=== PATIENT | female | born 1950 | race Caucasian/White ===

== ENCOUNTER → 2017-12-16 11:22 | Outpatient (REF) | payer MEDICARE, SELFPAY ==
[2017-12-16 13:50] LABS: Amphetamine/Metha Screen,Urine Negative ng/mL (<1000); Barbiturates Screen,Urine Negative ng/mL (<200); Benzodiazepines Screen,Urine Negative ng/mL (200); Cannabinoid Screen,Urine Negative ng/mL (<50); Cocaine Screen,Urine Negative ng/g (<300); Methadone Screen,Urine Negative ng/mL (<300); Opiate Screen,Urine Negative ng/mL (<300); Phencyclidine Screen,Urine Negative ng/mL (<25)
[2017-12-16 14:02] LABS: Basophils # 0.1 K/mm3 (0-0.2); Basophils % 0.6 % (0.1-2.0); Eosinophils # 0.1 K/mm3 (0.0-0.4); Eosinophils % 1.3 % (0.1-12.0); Hematocrit 44.4 % (37.0-47.0); Hemoglobin 14.7 g/dL (12.2-16.2); Lymphocytes # 1.6 K/mm3 (0.7-4.5); Lymphocytes % 20.6 K/mm3 (10-50); Mean Corpuscular HGB Conc 33.1 g/dL (31.8-35.4); Mean Corpuscular Volume 90.8 fl (81-99); Monocytes # 0.4 K/mm3 (0.1-1.0); Neutrophils # 5.5 K/mm3 (1.8-7.8); Neutrophils % 72.5 % (37.0-80.0); Platelet Count 307 K/mm3 (142-424); Red Blood Count 4.89 M/mm3 (4.20-5.40); Red Cell Distribution Width 12.2 % (11.5-17.5); White Blood Count 7.6 K/mm3 (4.8-10.8)
[2017-12-16 14:04] LABS: Alanine Aminotransferase 29 U/L (12-78); Albumin Level 4.5 gm/dL (3.4-5.0); Albumin/Globulin Ratio 1.2 (1.1-1.8); Alkaline Phosphatase 77 U/L (46-116); Anion Gap 17.6 mEq/L (5-15); Aspartate Amino Transferase 30 U/L (15-37); Bilirubin,Total 0.4 mg/dL (0.2-1.0); Blood Urea Nitrogen 4 mg/dL (7-18); Calcium 9.7 mg/dL (8.5-10.1); Carbon Dioxide 26 mmol/L (21.0-32.0); Chloride 95 mmol/L (98-107); Chol/HDL Ratio 1.6 (1-3.5); Cholesterol 175 mg/dL (140-200); Creatinine,Serum 0.58 mg/dL (0.55-1.02); Estimated Glomerular Filt Rate 104 ml/min (>60); GFR (African American) 126 ML/MIN (>60); Globulin 3.7 gm/dl (1.3-3.2); Glucose 103 mg/dL (74-106); HDL Cholesterol 109 mg/dL (29-89); LDL Cholesterol 51 mg/dL (0-130); Potassium 4.6 mmoL/L (3.5-5.1); Sodium 134 mmol/L (136-145); T4 (Thyroxine) 7.5 ug/dl (4.7-13.3); Thyroid Stimulating Hormone 2.31 uIU/ml (0.358-3.740); Total Protein,Serum 8.2 gm/dL (6.4-8.2); Triglycerides 76 mg/dL (30-200); VLDL Cholesterol 15 mg/dL (0-40)
== END ==
LOC: LAB 11:22
PROVIDERS: Visit Provider Physician Assistant
DX: I10 Essential (primary) hypertension (principal); Z79.899 Other long term (current) drug therapy
CPT/HCPCS: 80053; 80061; 80305; 84436; 84443; 85025

== ENCOUNTER → 2018-04-07 10:09 | Outpatient (CLI) | payer MEDICARE, SELFPAY ==
[2018-04-07 13:57] LABS: Free T4 (Free Thyroxine) 0.98 ng/dl (0.76-1.46); Thyroid Stimulating Hormone 2.44 uIU/ml (0.358-3.740)
== END ==
PROVIDERS: Visit Provider Physician Assistant
DX: E78.5 Hyperlipidemia, unspecified (principal); F41.9 Anxiety disorder, unspecified
CPT/HCPCS: 84439; 84443

== ENCOUNTER → 2018-10-07 14:37 | Outpatient (CLI) | payer MEDICARE, SELFPAY ==
[2018-10-07 15:20] LABS: Amphetamine/Metha Screen,Urine Negative ng/mL (<1000); Barbiturates Screen,Urine Negative ng/mL (<200); Benzodiazepines Screen,Urine Negative ng/mL (<200); Cannabinoid Screen,Urine Negative ng/mL (<50); Cocaine Screen,Urine Negative ng/mL (<300); Methadone Screen,Urine Negative ng/mL (<300); Opiate Screen,Urine Negative ng/mL (<300); Phencyclidine Screen,Urine Negative ng/mL (<25)
== END ==
PROVIDERS: Visit Provider Physician Assistant
DX: Z79.899 Other long term (current) drug therapy (principal)
CPT/HCPCS: 80305

== ENCOUNTER → 2018-10-23 13:24 | Outpatient (CLI) | payer MEDICARE, SELFPAY ==
[2018-10-23 15:48] LABS: Amphetamine/Metha Screen,Urine Negative ng/mL (<1000); Barbiturates Screen,Urine Negative ng/mL (<200); Benzodiazepines Screen,Urine Negative ng/mL (<200); Cannabinoid Screen,Urine Negative ng/mL (<50); Cocaine Screen,Urine Negative ng/mL (<300); Methadone Screen,Urine Negative ng/mL (<300); Opiate Screen,Urine Negative ng/mL (<300); Phencyclidine Screen,Urine Negative ng/mL (<25)
== END ==
PROVIDERS: Visit Provider Physician Assistant
DX: Z79.899 Other long term (current) drug therapy (principal)
CPT/HCPCS: 80305

== ENCOUNTER → 2019-01-15 14:00 | Outpatient (CLI) | payer MEDICARE, SELFPAY ==
[2019-01-15 14:37] LABS: Basophils # 0.1 K/mm3 (0-0.2); Basophils % 0.6 % (0.1-2.0); Eosinophils # 0.1 K/mm3 (0.0-0.4); Eosinophils % 1.3 % (0.1-12.0); Hematocrit 44.2 % (37.0-47.0); Hemoglobin 14.6 g/dL (12.2-16.2); Lymphocytes # 1.3 K/mm3 (0.7-4.5); Lymphocytes % 13.3 % (10-50); Mean Corpuscular Hemoglobin 29.1 pg (27.0-31.2); Mean Corpuscular Volume 88.3 fl (81-99); Mean Platelet Volume 7.5 fl (7.4-10.4); Monocytes # 0.6 K/mm3 (0.1-1.0); Monocytes % 5.9 % (1.7-9.3); Neutrophils # 7.9 K/mm3 (1.8-7.8); Neutrophils % 78.9 % (37.0-80.0); Platelet Count 332 K/mm3 (142-424); Red Cell Distribution Width 12.5 % (11.5-17.5); White Blood Count 10.1 K/mm3 (4.8-10.8)
[2019-01-15 16:55] LABS: Alanine Aminotransferase 43 U/L (12-78); Albumin Level 4.4 gm/dL (3.4-5.0); Albumin/Globulin Ratio 1.2 (1.1-1.8); Alkaline Phosphatase 95 U/L (46-116); Anion Gap 17.5 mEq/L (5-15); Aspartate Amino Transferase 30 U/L (15-37); Bilirubin,Total 0.6 mg/dL (0.2-1.0); Blood Urea Nitrogen 4 mg/dL (7-18); Calcium 9.7 mg/dL (8.5-10.1); Carbon Dioxide 26 mmol/L (21.0-32.0); Chloride 94 mmol/L (98-107); Chol/HDL Ratio 1.6 (1-3.5); Cholesterol 164 mg/dL (140-200); Creatinine,Serum 0.63 mg/dL (0.55-1.02); Estimated Glomerular Filt Rate 94 ml/min (>60); GFR (African American) 114 ML/MIN (>60); Globulin 3.7 gm/dl (1.3-3.2); Glucose 101 mg/dL (74-106); HDL Cholesterol 104 mg/dL (29-89); LDL Cholesterol 44 mg/dL (0-130); Potassium 4.5 mmoL/L (3.5-5.1); Sodium 133 mmol/L (136-145); T4 (Thyroxine) 5.3 ug/dl (4.7-13.3); Thyroid Stimulating Hormone 1.77 uIU/ml (0.358-3.740); Total Protein,Serum 8.1 gm/dL (6.4-8.2); Triglycerides 78 mg/dL (30-200); VLDL Cholesterol 16 mg/dL (0-40)
[2019-01-15 18:12] LABS: Amphetamine/Metha Screen,Urine Negative ng/mL (<1000); Barbiturates Screen,Urine Negative ng/mL (<200); Benzodiazepines Screen,Urine Negative ng/mL (<200); Cannabinoid Screen,Urine Negative ng/mL (<50); Cocaine Screen,Urine Negative ng/mL (<300); Methadone Screen,Urine Negative ng/mL (<300); Opiate Screen,Urine Negative ng/mL (<300); Phencyclidine Screen,Urine Negative ng/mL (<25)
[2019-01-26 07:28] LABS: Alprazolam Negative (Cutoff=100); Benzodiazepines Positive ng/mL (Cutoff=100); Clonazepam Negative (Cutoff=100); Flurazepam Negative (Cutoff=100); Lorazepam Positive (.); Midazolam Negative (Cutoff=100); Temazepam Negative (Cutoff=100); Triazolam Negative (Cutoff=100)
== END ==
LOC: LAB.DROPOF 14:03
PROVIDERS: Visit Provider Physician Assistant
DX: Z79.899 Other long term (current) drug therapy (principal); I10 Essential (primary) hypertension; E78.5 Hyperlipidemia, unspecified
CPT/HCPCS: 80053; 80061; 80305; 80346; 84436; 84443; 85025

== ENCOUNTER → 2019-04-20 13:59 | Outpatient (CLI) | payer MEDICARE, SELFPAY ==
[2019-04-20 15:04] LABS: Amphetamine/Metha Screen,Urine Negative ng/mL (<1000); Barbiturates Screen,Urine Negative ng/mL (<200); Benzodiazepines Screen,Urine Positive ng/mL (<200); Cannabinoid Screen,Urine Negative ng/mL (<50); Cocaine Screen,Urine Negative ng/mL (<300); Methadone Screen,Urine Negative ng/mL (<300); Opiate Screen,Urine Negative ng/mL (<300); Phencyclidine Screen,Urine Negative ng/mL (<25)
== END ==
PROVIDERS: Visit Provider Physician Assistant
DX: Z79.899 Other long term (current) drug therapy (principal)
CPT/HCPCS: 80305

== ENCOUNTER → 2019-10-19 13:43 | Outpatient (CLI) | payer MEDICARE, SELFPAY ==
[2019-10-19 21:17] LABS: Amphetamine/Metha Screen,Urine Negative ng/ml (<1000); Barbiturates Screen,Urine Negative ng/ml (<200)
[2019-10-19 21:18] LABS: Benzodiazepines Screen,Urine Negative ng/ml (<200)
[2019-10-19 21:19] LABS: Cannabinoid Screen,Urine Negative ng/ml (<50); Cocaine Screen,Urine Negative ng/ml (<300)
[2019-10-19 21:20] LABS: Methadone Screen,Urine Negative ng/ml (<300)
[2019-10-19 21:21] LABS: Opiate Screen,Urine Negative ng/ml (<300); Phencyclidine Screen,Urine Negative ng/ml (<25)
== END ==
PROVIDERS: Visit Provider Physician Assistant
DX: Z79.899 Other long term (current) drug therapy (principal)
CPT/HCPCS: 80305

== ENCOUNTER → 2020-01-19 14:52 | Outpatient (CLI) | payer MEDICARE, SELFPAY ==
[2020-01-19 16:21] LABS: Basophils # 0.1 K/mm3 (0-0.2); Basophils % 0.8 % (0.1-2.0); Eosinophils # 0.2 K/mm3 (0.0-0.4); Eosinophils % 1.7 % (0.1-12.0); Hematocrit 43.2 % (37.0-47.0); Hemoglobin 14.1 g/dL (12.2-16.2); Lymphocytes # 1.9 K/mm3 (0.7-4.5); Lymphocytes % 19.6 % (10-50); Mean Corpuscular HGB Conc 32.6 g/dL (31.8-35.4); Mean Corpuscular Hemoglobin 29.2 pg (27.0-31.2); Mean Corpuscular Volume 89.5 fl (81-99); Mean Platelet Volume 8.7 fl (7.4-10.4); Monocytes # 0.7 K/mm3 (0.1-1.0); Monocytes % 6.9 % (1.7-9.3); Neutrophils # 6.9 K/mm3 (1.8-7.8); Platelet Count 354 K/mm3 (142-424); Red Blood Count 4.82 M/mm3 (4.20-5.40); Red Cell Distribution Width 12.8 % (11.5-17.5); White Blood Count 9.7 K/mm3 (4.8-10.8)
[2020-01-19 16:24] LABS: Chloride 97 mmol/L (98-107); Potassium 4.1 mmoL/L (3.5-5.1); Sodium 130 mmol/L (136-145)
[2020-01-19 16:26] LABS: Alanine Aminotransferase 29 U/L (12-78); Aspartate Amino Transferase 47 U/L (14-36); Blood Urea Nitrogen 5 mg/dl (7-17); Estimated Glomerular Filt Rate 99 ml/min (>60); GFR (African American) 120 ML/MIN (>60)
[2020-01-19 16:27] LABS: Albumin Level 4.6 g/dl (3.5-5.0); Albumin/Globulin Ratio 1.4 (1.1-1.8); Alkaline Phosphatase 112 U/L (38-126); Anion Gap 12.1 mEq/L (5-15); Bilirubin,Total 0.6 mg/dl (0.2-1.3); Calcium 9.7 mg/dl (8.4-10.2); Carbon Dioxide 25 mmol/L (22.0-30.0); Cholesterol 164 mg/dl (140-200); Globulin 3.4 g/dL (1.3-3.2); Glucose 101 mg/dl (74-100); Triglycerides 73 mg/dl (30-150); VLDL Cholesterol 15 mg/dL (0-40)
[2020-01-19 16:38] LABS: Direct LDL Cholesterol 62.75 mg/dL (100-129)
[2020-01-19 17:14] LABS: Chol/HDL Ratio 1.5 (1-3.5); HDL Cholesterol 111 mg/dl (40-60)
[2020-01-19 17:27] LABS: T4 (Thyroxine) 6.7 ug/dl (5.53-11.0)
[2020-01-19 17:40] LABS: Thyroid Stimulating Hormone 3.27 uIU/mL (0.465-4.68)
[2020-01-21 10:00] LABS: Vitamin D 25 Hydroxy 43.9 ng/mL (30.0-100.0)
== END ==
PROVIDERS: Visit Provider Physician Assistant
DX: I10 Essential (primary) hypertension (principal); Z79.899 Other long term (current) drug therapy
CPT/HCPCS: 80053; 80061; 82652; 84436; 84443; 85025

== ENCOUNTER → 2020-06-13 16:14 | Outpatient (CLI) | payer MEDICARE, SELFPAY | PROVIDERS: Visit Provider Physician Assistant | DX: R30.0 Dysuria (principal) | CPT/HCPCS: 87086 ==

== ENCOUNTER → 2020-09-20 14:31 | Outpatient (CLI) | payer MEDICARE, SELFPAY ==
[2020-09-20 15:30] LABS: Amphetamine/Metha Screen,Urine Negative ng/ml (<1000); Barbiturates Screen,Urine Negative ng/ml (<200)
[2020-09-20 15:31] LABS: Benzodiazepines Screen,Urine Negative ng/ml (<200)
[2020-09-20 15:32] LABS: Cannabinoid Screen,Urine Negative ng/ml (<50); Cocaine Screen,Urine Negative ng/ml (<300)
[2020-09-20 15:33] LABS: Methadone Screen,Urine Negative ng/ml (<300)
[2020-09-20 15:34] LABS: Opiate Screen,Urine Negative ng/ml (<300); Phencyclidine Screen,Urine Negative ng/ml (<25)
== END ==
PROVIDERS: Visit Provider Physician Assistant
DX: Z79.899 Other long term (current) drug therapy (principal)
CPT/HCPCS: 80305

== ENCOUNTER → 2020-12-21 09:22 | Outpatient (CLI) | payer MEDICARE, SELFPAY | PROVIDERS: PCP Emergency Medicine; Visit Provider Physician Assistant | DX: Z20.822 Contact with and (suspected) exposure to COVID-19 (principal) | CPT/HCPCS: U0003 ==

== ENCOUNTER → 2020-12-27 13:49 | Outpatient (CLI) | payer MEDICARE, SELFPAY ==
[2020-12-27 14:47] LABS: Amphetamine/Metha Screen,Urine Negative ng/ml (<1000)
[2020-12-27 14:48] LABS: Barbiturates Screen,Urine Negative ng/ml (<200)
[2020-12-27 14:51] LABS: Benzodiazepines Screen,Urine Negative ng/ml (<200)
[2020-12-27 14:52] LABS: Cannabinoid Screen,Urine Negative ng/ml (<50); Cocaine Screen,Urine Negative ng/ml (<300)
[2020-12-27 14:55] LABS: Methadone Screen,Urine Negative ng/ml (<300); Opiate Screen,Urine Negative ng/ml (<300)
[2020-12-27 14:56] LABS: Phencyclidine Screen,Urine Negative ng/ml (<25)
== END ==
PROVIDERS: Visit Provider Physician Assistant
DX: Z79.899 Other long term (current) drug therapy (principal)
CPT/HCPCS: 80305

== ENCOUNTER 2021-01-04 23:41 | Observation (INO) | payer MEDICARE, SELFPAY ==
[2021-01-04 23:41] VITALS: BP 148/86; PULSE 87; RESP 18; TEMP 36.7; O2SAT 98; BMI 25.7
--- NOTE | 2021-01-04 23:49 | CT_ITS ---
PROCEDURE INFORMATION: Exam: CT Cervical Spine Without Contrast Exam date and time: 01/04/2021 11:49 PM Age: 70 years old Clinical indication: Injury or trauma; Fall; Blunt trauma; Injury date: 01/04/2021; Injury details: Fell neck pain headache TECHNIQUE: Imaging protocol: Computed tomography images of the cervical spine without contrast. Radiation optimization: All CT scans at this facility use at least one of these dose optimization techniques: automated exposure control; mA and/or kV adjustment per patient size (includes targeted exams where dose is matched to clinical indication); or iterative reconstruction. COMPARISON: No relevant prior studies available. FINDINGS: Limitations: Patient motion. Bones/joints: Grade 1 anterolisthesis of C4 on C5. Vertebral body heights are preserved. [id number] degenerative change about the dens. Mild for age facet joint degenerative change. No definite acute cervical spine fracture. Discs/Spinal canal/Neural foramina: No definite high-grade central canal stenosis within limitations of technique. Lungs: Emphysema. Scarring at the lung apices. Pleural spaces: No visible pneumothorax. Vasculature: Vascular calcification. Soft tissues: Unremarkable. IMPRESSION: Patient motion without definite acute cervical spine fracture.
--- NOTE | 2021-01-04 23:49 | CT_ITS ---
PROCEDURE INFORMATION: Exam: CT Head Without Contrast Exam date and time: 01/04/2021 11:49 PM Age: 70 years old Clinical indication: Injury or trauma; Fall; Blunt trauma (contusions or hematomas); Consciousness not specified; Injury date: 01/04/2021; Injury details: Fell ETOH abuse possibly hit her head headache and neck pain TECHNIQUE: Imaging protocol: Computed tomography of the head without contrast. Radiation optimization: All CT scans at this facility use at least one of these dose optimization techniques: automated exposure control; mA and/or kV adjustment per patient size (includes targeted exams where dose is matched to clinical indication); or iterative reconstruction. COMPARISON: [facility] CT HEAD W/O CONTRAST 11/16/2015 3:20 PM FINDINGS: Brain: Decreased attenuation of the supratentorial white matter is likely secondary to chronic microvascular ischemia. No acute intracranial hemorrhage. Cerebral ventricles: Ventricular and subarachnoid spaces are age appropriate. Bones/joints: Unremarkable. No acute fracture. Paranasal sinuses: Scattered paranasal sinus disease. Mastoid air cells: Mild partial opacification of the left mastoid air cells. Vasculature: Intracranial vascular calcification. Soft tissues: Right parietal scalp soft tissue swelling. IMPRESSION: No acute intracranial abnormality.
--- NOTE | 2021-01-04 23:49 | XR_ITS ---
PROCEDURE INFORMATION: Exam: XR Chest Exam date and time: 01/04/2021 11:49 PM Age: 70 years old Clinical indication: Injury or trauma; Fall; Blunt trauma (contusions or hematomas); Injury date: 01/04/2021; Injury details: Fell trauma protocol ETOH abuse TECHNIQUE: Imaging protocol: XR of the chest. Views: 4 or more views. COMPARISON: No relevant prior studies available. FINDINGS: Lungs: The lungs are clear without consolidation. Pleural spaces: Unremarkable. No pleural effusion. No pneumothorax. Heart/Mediastinum: The cardiac silhouette, mediastinal contours and hilar shadows appear unremarkable. There is no apical capping or mediastinal widening. The aortic knob is well-defined. Bones/joints: Osseous structures demineralized but grossly intact. IMPRESSION: No acute intrathoracic trauma.
--- NOTE | 2021-01-04 23:49 | XR_ITS ---
PROCEDURE INFORMATION: Exam: XR Pelvis Exam date and time: 01/04/2021 11:49 PM Age: 70 years old Clinical indication: Injury or trauma; Fall; Blunt trauma (contusions or hematomas); Bilateral; Pelvic region; Injury date: 01/04/2021; Injury details: Fell ETOH abuse trauma protocol TECHNIQUE: Imaging protocol: XR pelvis. Views: 1 or 2 view. COMPARISON: ABDPELW/O CT ABD PELVIS W/O CONTRAST 07/23/2016 5:22 AM FINDINGS: Bones/joints: The bones are demineralized but grossly intact without an acute fracture or dislocation identified. The SI joints, sacral arcuate lines and pubic symphysis are intact. The femoral heads retain their normal contour. Soft tissues: Unremarkable. IMPRESSION: No acute findings.
--- NOTE | 2021-01-04 23:57 | ECG_ITS ---
APPROVED REPORT Exam: Resting ECG HR:86 bpm ECG Measurements Heart Rate 86 AXES MD 220 P 70 QRSd 76 QRS -23 QT 392 T 17 QTc 469 Conclusion Sinus rhythm with 1st degree AV block Low voltage QRS Nonspecific T wave abnormality Abnormal ECG Electronically signed by : Wade Milan, 01/07/2021 11:39:23
[2021-01-05] VITALS (9 sets, daily range): BP systolic 109–141; BP diastolic 72–90; PULSE 90–108; RESP 16–18; TEMP 36.6–37; O2SAT 96–99; BMI 23.8
--- NOTE | 2021-01-05 00:05 | HMH.EDFALL ---
ED Disposition Clinical Impression: Hyponatremia, Anxiety, Overweight (BMI 25.0-29.9) Syncope Qualifiers: Syncope type: unspecified Qualified Code(s): R55 - Syncope and collapse Concussion with loss of consciousness Qualifiers: Encounter type: initial encounter Qualified Code(s): S06.0X9A - Concussion with loss of consciousness of unspecified duration, initial encounter Hypertension Qualifiers: Hypertension type: essential hypertension Qualified Code(s): I10 - Essential (primary) hypertension Hyperlipidemia Qualifiers: Hyperlipidemia type: unspecified Qualified Code(s): E78.5 - Hyperlipidemia, unspecified Disposition: Admitted as Observation Condition on Discharge: Good - Critical Care Critical Care Time: No Attestation: On 01/04/21, the high probability of a clinically significant, sudden or life threatening deterioration of the following system(s) required my full and direct attention, intervention and personal management. The time I documented below is in addition to time spent performing reported procedures but includes the following listed in this critical care notation. Medical Decision Making - Medical Records Medical records reviewed: Yes: I reviewed the patient's medical records. - Durga Inquiry Pt receiving controlled substance: No Vital Signs: 01/04/21 23:41 01/05/21 01:00 Temperature 98.0 F Temperature Source Oral Pulse Rate 97 H Pulse Rate [Left Radial] 87 Respiratory Rate 18 16 Blood Pressure 137/86 Blood Pressure [Right Arm] 148/86 H Blood Pressure Mean [Right Arm] 106 Blood Pressure Source Automatic Cuff Blood Pressure Source [Right Arm] Automatic Cuff Blood Pressure Position Supine Blood Pressure Position [Right Arm] Supine 02 Sat by Pulse Oximetry 98 99 Oxygen Delivery Method Room Air Room Air - Lab Data Lab results reviewed: Yes: I reviewed the patient's lab results. Lab Results 01/04/21 23:30: WBC 10.7, RBC 5.09, Hgb 14.4, Hct 43.9, MCV 86.2, MCH 28.4, MCHC 32.9, RDW 12.8, Plt Count 365, MPV 7.2 L, Neut % (Auto) 60.0, Lymph % (Auto) 29.7, [place] % (Auto) 7.0, Eos % (Auto) 2.2, Baso % (Auto) 1.2, Neut # (Auto) 6.4, Lymph # (Auto) 3.2, [place] # (Auto) 0.8, Eos # (Auto) 0.2, Baso # (Auto) 0.1, ESR 7 01/04/21 23:30: Sodium 126 L, Potassium 3.4 L, Chloride 90 L, Carbon Dioxide 26, Anion Gap 13.4, BUN 6 L, Creatinine 0.90, Estimated Creat Clear 57, Estimated GFR 62, Est GFR ( Amer) 75, Glucose 115 H, Calcium 9.9, Total Bilirubin 0.5, Direct Bilirubin 0.4, Conjugated Bilirubin 0.0, Indirect Bilirubin 0.1, Unconjugated Bilirubin 0.1, AST 47 H, ALT 28, Alkaline Phosphatase 95, Troponin I < 0.01, C-Reactive Protein 2.2, Total Protein 8.2, Albumin 4.8 01/04/21 23:30: TSH 9.97 H, Thyroxine (T4) 8.1 01/04/21 23:30: Plasma/Serum Alcohol 12 H Result diagrams: 01/04/21 23:30 01/04/21 23:30 Orders (Tests/Meds): ED MEDICATIONS Generic Name Dose Route Start Last Admin Trade Name Freq PRN Reason Stop Dose Admin Sodium Chloride 1,000 mls @ 999 mls/hr 01/05/21 00:45 01/05/21 00:42 Sod Chlor 0.9% 1000ml Bag IV 01/05/21 01:45 999 mls/hr .Q1H1M CAROL Administration ORDERS Category Date Time Status Covid-19 Nasal PCR ([facility]) Routine Lab 01/05/21 23:40 Received Diarrhea 23 Panel, PCR Stat Lab 01/04/21 23:55 Ordered Procalcitonin Stat Lab 01/04/21 23:30 Results T4 (Thyroxine) Stat Lab 01/04/21 23:30 Results TSH [Thyroid Stimulating Hormone] Stat Lab 01/04/21 23:30 Results Troponin I Q3H Lab 01/05/21 03:00 Ordered Troponin I Q3H Lab 01/05/21 06:00 Ordered UDS [Drug Screen,Urine] Stat Lab 01/04/21 23:54 Received Urinalysis and Microscopic Stat Lab 01/05/21 01:25 Received - Radiology Data #1 Image(s): Chest, Pelvis Image Reviewed: Yes I reviewed the patient's radiology image Preliminary Findings: No Fracture Seen - CT Data CT Scan: Head, C-Spine Time Received: 01:[address] Reviewed: Yes: I have viewed the radiologist's interpretation
[2021-01-05 00:07] LABS: Chloride 90 mmol/L (98-107); Potassium 3.4 mmoL/L (3.5-5.1); Sodium 126 mmol/L (136-145)
[2021-01-05 00:09] LABS: Alanine Aminotransferase 28 U/L (12-78); Basophils # 0.1 K/mm3 (0-0.2); Basophils % 1.2 % (0.1-2.0); Bilirubin,Unconjugated 0.1 mg/dL (0.0-1.1); Blood Urea Nitrogen 6 mg/dl (7-17); Creatinine Clearance Estimated 57 mL/min (50-200); Eosinophils # 0.2 K/mm3 (0.0-0.4); Eosinophils % 2.2 % (0.1-12.0); Estimated Glomerular Filt Rate 62 ml/min (>60); GFR (African American) 75 ML/MIN (>60); Hematocrit 43.9 % (37.0-47.0); Hemoglobin 14.4 g/dL (12.2-16.2); Lymphocytes # 3.2 K/mm3 (0.7-4.5); Lymphocytes % 29.7 % (10-50); Mean Corpuscular HGB Conc 32.9 g/dL (31.8-35.4); Mean Corpuscular Hemoglobin 28.4 pg (27.0-31.2); Mean Corpuscular Volume 86.2 fl (81-99); Mean Platelet Volume 7.2 fl (7.4-10.4); Monocytes # 0.8 K/mm3 (0.1-1.0); Neutrophils # 6.4 K/mm3 (1.8-7.8); Platelet Count 365 K/mm3 (142-424); Red Blood Count 5.09 M/mm3 (4.20-5.40); Red Cell Distribution Width 12.8 % (11.5-17.5); White Blood Count 10.7 K/mm3 (4.8-10.8)
[2021-01-05 00:10] LABS: Albumin Level 4.8 g/dl (3.5-5.0); Alkaline Phosphatase 95 U/L (38-126); Anion Gap 13.4 mEq/L (5-15); Aspartate Amino Transferase 47 U/L (14-36); Bilirubin,Direct 0.4 mg/dl (0.0-0.4); Bilirubin,Indirect 0.1 mg/dL (0.0-0.9); Bilirubin,Total 0.5 mg/dl (0.2-1.3); Calcium 9.9 mg/dl (8.4-10.2); Carbon Dioxide 26 mmol/L (22.0-30.0); Glucose 115 mg/dl (74-100); Total Protein,Serum 8.2 g/dl (6.3-8.2)
[2021-01-05 00:11] LABS: Ethyl Alcohol 12 mg/dl (0-10)
[2021-01-05 00:15] LABS: C-Reactive Protein 2.2 mg/L (0-4)
[2021-01-05 00:31] LABS: T4 (Thyroxine) 8.1 ug/dl (5.53-11.0)
[2021-01-05 00:38] LABS: Troponin I < 0.01 ng/ml (0.00-0.034)
[2021-01-05 00:44] LABS: Thyroid Stimulating Hormone 9.97 uIU/mL (0.465-4.68)
[2021-01-05 00:48] LABS: Erythrocyte Sedimentation Rate 7 mm/hr (0-30)
[2021-01-05 01:28] LABS: Microscopic, Urine URINE MICROSCOPIC (MICROSCOPIC)
[2021-01-05 01:30] LABS: Appearance,Urine CLEAR (Clear); Bilirubin,Urine Negative (Negative); Blood, Urine Negative (Negative); Color,Urine YELLOW (Yellow); Glucose,Urine (UA) Negative (Negative); Ketones,Urine Negative (Negative); Leukocyte Esterase,Urine Negative (Negative); Nitrate,Urine POSITIVE (Negative); PH,Urine 7.5 (5.0-8.5); Protein,Urine Negative (Negative); Specific Gravity, Urine 1.015 (1.005-1.030); Urobilinogen,Urine 0.2 EU/dl (0.2)
[2021-01-05 01:42] LABS: Barbiturates Screen,Urine Negative ng/ml (<200)
[2021-01-05 01:43] LABS: Benzodiazepines Screen,Urine Negative ng/ml (<200)
[2021-01-05 01:44] LABS: Amphetamine/Metha Screen,Urine Negative ng/ml (<1000); Cannabinoid Screen,Urine Negative ng/ml (<50)
[2021-01-05 01:45] LABS: Cocaine Screen,Urine Negative ng/ml (<300)
[2021-01-05 01:46] LABS: Methadone Screen,Urine Negative ng/ml (<300); Opiate Screen,Urine Negative ng/ml (<300)
[2021-01-05 01:47] LABS: Phencyclidine Screen,Urine Negative ng/ml (<25)
[2021-01-05 01:50] LABS: Amorphous Sediment,Urine 1+ /lpf; Bacteria,Urine 2+ /lpf; Mucus,Urine 1+ /lpf
[2021-01-05 01:52] LABS: Procalcitonin 0.041 ng/mL (0.0-2.0)
--- NOTE | 2021-01-05 02:53 | PC.NURSE ---
pt arrived via wheelchair per RN
[2021-01-05 03:17] LABS: Troponin I < 0.01 ng/ml (0.00-0.034)
--- NOTE | 2021-01-05 05:25 | PC.NURSE ---
A&OX4. PT TOLERATING RA WELL. PT HAS NOT HAD ANY C/O DIZZINESS, NA/VO THUS FAR THIS SHIFT. PT DID HAVE HOPE UPON ARRIVAL TO FLOOR, GIVEN PRN TYLENOL. PT HAS SLEPT SINCE, NO OTHER C/O. PT DAUGHTER AT BEDSIDE. VSS WILL CONTINUE TO MONITOR.
[2021-01-05 06:49] LABS: Basophils # 0.1 K/mm3 (0-0.2); Basophils % 0.4 % (0.1-2.0); Eosinophils # 0.1 K/mm3 (0.0-0.4); Eosinophils % 0.5 % (0.1-12.0); Lymphocytes # 1.4 K/mm3 (0.7-4.5); Lymphocytes % 11.6 % (10-50); Mean Corpuscular HGB Conc 32.5 g/dL (31.8-35.4); Mean Corpuscular Hemoglobin 28.3 pg (27.0-31.2); Mean Corpuscular Volume 87.2 fl (81-99); Mean Platelet Volume 7.1 fl (7.4-10.4); Monocytes # 0.6 K/mm3 (0.1-1.0); Monocytes % 4.9 % (1.7-9.3); Neutrophils # 9.9 K/mm3 (1.8-7.8); Neutrophils % 82.5 % (37.0-80.0); Platelet Count 286 K/mm3 (142-424); Red Blood Count 4.48 M/mm3 (4.20-5.40); Red Cell Distribution Width 12.8 % (11.5-17.5)
[2021-01-05 07:00] LABS: Anion Gap 9.1 mEq/L (5-15); Blood Urea Nitrogen 4 mg/dl (7-17); Carbon Dioxide 23 mmol/L (22.0-30.0); Chloride 103 mmol/L (98-107); Creatinine Clearance Estimated 53 mL/min (50-200); Estimated Glomerular Filt Rate 99 ml/min (>60); GFR (African American) 120 ML/MIN (>60); Glucose 102 mg/dl (74-100); Magnesium 1.8 mg/dl (1.6-2.3); Potassium 4.1 mmoL/L (3.5-5.1); Sodium 131 mmol/L (136-145)
[2021-01-05 07:11] LABS: Calcium 8.4 mg/dl (8.4-10.2)
[2021-01-05 07:12] LABS: Troponin I < 0.01 ng/ml (0.00-0.034)
[2021-01-05 07:19] LABS: Hemoglobin 12.7 g/dL (12.2-16.2)
--- NOTE | 2021-01-05 07:30 | P.CONPHA_ITS ---
[facility] Pharmacy VTE Monitoring - Patient Demographics Admission date: 01/05/21 Report Date: 01/05/21 Time: 07:30 Allergies/Adverse Reactions: Patient Allergies acetaminophen [From NYQUIL] Allergy (Unknown, Verified 01/05/21 02:57) SHAKY/JITTERY dextromethorphan [From NYQUIL] Allergy (Unknown, Verified 01/05/21 02:57) SHAKY/JITTERY diphenhydramine [From BENADRYL] Allergy (Unknown, Verified 01/05/21 02:57) I-RASH doxylamine [From NYQUIL] Allergy (Unknown, Verified 01/05/21 02:57) SHAKY/JITTERY pseudoephedrine [From NYQUIL] Allergy (Unknown, Verified 01/05/21 02:57) BRANDI/DRAGAN Height: 1.63 m Weight: 63.163 kg Patient Problems: Current Active Problems Syncope (Acute) Concussion with loss of consciousness (Acute) Hyponatremia (Acute) Overweight (BMI 25.0-29.9) (Acute) Hyperlipidemia (Chronic) Hypertension (Chronic) Anxiety (Chronic) - VTE Risk Labs: VTE Related Lab Results Hgb 12.7 g/dL (12.2-16.2) D 01/05/21 06:00 Hct 39.0 % (37.0-47.0) 01/05/21 06:00 Plt Count 286 K/mm3 (142-424) 01/05/21 06:00 BUN 4 mg/dl (7-17) L D 01/05/21 06:00 Creatinine 0.60 mg/dl (0.52-1.04) D 01/05/21 06:00 Estimated Creat Clear 53 mL/min (50-200) 01/05/21 06:00 - Prophylaxis VTE Prophylaxis Ordered?: Yes Types of VTE Prophylaxis: TEDS Knee High Location of Applied Device: Bilateral Lower Extremeties
--- NOTE | 2021-01-05 07:45 | HMH.PHAINT ---
MEDICATION RECONCILIATION COMPLETED ON PATIENT USING EXTERNAL FILL HISTORY FROM PHARMACY. -FAWN PERERA, JIMBOD
--- NOTE | 2021-01-05 08:00 | CA_ITS ---
APPROVED REPORT EXAM: Comprehensive 2D, Doppler, and color-flow Echocardiogram Sand Blaster: Michelle Small CRT Ht: 5 ft 4 in Wt: 150lbs BSA: 1.73 BP: 137/86 mmHg Indications: Murmur, Syncope, Hyperlipidemia, Hypertension/HDD, smoker, alcohol 2D Dimensions LA Volume 25.40 mL LA Volume Index 14.70 mL/m2 (M/F) 16-34 M-Mode Dimensions RVDd 3.68 cm (0.9-2.6) LA Diam 3.26 cm (1.9-4.0) LVDd 3.54 cm (3.5-5.7) Ao Diam 3.43 cm (2.0-3.7) LVDs 2.58 cm (3.5-5.7) IVSd 1.47 cm (0.6-1.1) PWd 0.82 cm (0.6-1.1) EF (Teich) 65.40% FS 35.30% EDV (Teich) 69.60 mL TAPSE 2.51 (<1.7) ESV (Teich) 24.10 mL LV Diastology E Decel Time 150.00 (160-240 msec) E/A Ratio 0.54 MED E' 8.50 (< 7 cm/sec) MED A' 5.70 cm/s E'/MED E' Ratio 4.82 (>14) LAT E' 4.50 (<10 cm/sec) LAT A' 8.10 cm/s E/LAT E' Ratio 9.11 (>14) Aortic Valve AO Peak GR. 4.40 mmHg Mitral Valve MV E Max [place]. 41.00 (40-130 cm/s) MV A Velocity 75.00 (40-130 cm/s) E/A Ratio 0.54 MV Decel. Time 150.00 (160-240 ms) MV PHT 44.00 ms Pulmonary Valve PV Peak Velocity 47.00 (50-150 cm/s) Tricuspid Valve TR P. Velocity 217.00 cm/s RAP Estimate 10.00 mmHg RVSP 28.80 mmHg Left Ventricle Left atrium is mildly enlarged, left ventricle is normal size, mild concentric left ventricular hypertrophy, visually estimated ejection fraction 55% with no regional wall motion abnormality, grade 1 diastolic dysfunction seen without tissue Doppler evidence of raise left atrial pressure. Right Ventricle Right atrium and right ventricle are mildly enlarged with normal contractility. Aortic Valve Aortic valve is minimally thickened and fibrosed, there is no aortic stenosis or aortic insufficiency. Mitral Valve Mitral valve is grossly normal, there is mild mitral regurgitation. Tricuspid Valve Tricuspid valve grossly normal, there is mild tricuspid regurgitation, tricuspid regurgitation jet velocity is inadequate for calculation of the right ventricular systolic pressure. Pulmonic Valve Pulmonic valve is poorly visualized. Great Vessels Aortic root is normal size. Pericardium No significant pericardial effusion noted. Conclusion 1. Mild biatrial enlargement, normal left ventricular size, mild concentric left ventricular hypertrophy, visually estimated ejection fraction 55% with no regional wall motion abnormality, grade 1 diastolic dysfunction seen without tissue Doppler evidence of raise left atrial pressure. 2. Mildly enlarged right ventricle with normal contractility, inferior vena cava is mildly dilated without significant inspiratory collapse. 3. No significant pericardial effusion noted. Electronically signed by : Davian Raza, 01/05/2021 15:07:51
--- NOTE | 2021-01-05 10:22 | HMH.CNCARD ---
History of Present Illness Consult date: 01/05/21 Requesting physician: Leandro Quick Chief complaint: syncope History of present illness: This is a 70 year old white female who was admitted after a syncope episode. The patient states she was started on seroquel and took her first dose last night. she states she woke up to go to the bathroom in the middle of the night and blacked out. she lost control of her bowels and had diarrhea and was confused for about an hour after the episode. she states she had never felt like this before and knows it was from the medication. she also takes ativan and does consume alcohol as well. she denies cp, pressure, soa or edema. no fever, chills, n/v/d, pnd or orthopnea. she states no syncope prior to this. no racing of the heart. no symptoms of syncope or dizziness since the episode. [facility] History I have reviewed the patient's past medical history: Yes Medical History: Reports:: Anxiety, Hyperlipidemia, Hypertension *Have you ever received a pneumonia vaccine?: Yes *Have you received a flu vaccine this season?: Yes Other Surgeries: Yes: Appendectomy, Hysterectomy-Total Amputation: No Fractures: No - *Social History Smoking Status: Current every day smoker Tobacco Type: cigarettes # Packs/Day (cigarettes): 2 Alcohol Intake: current Alcohol Intake Frequency:: a few times a week Substance Use Type: denies use *Occupational Status:: unemployed *Travel in the last 8 weeks: None - Psychiatric History Pschychiatric History:: Reports:: Anxiety Family Hx:: Heart Attack Meds Home Medications Medication Instructions Recorded Confirmed Type lorazepam 1 mg tablet 1 mg PO TID PRN #90 tab 12/27/20 01/05/21 Rx Amlodipine Besylate 2.5 mg PO DAILY 01/05/21 01/05/21 History Atorvastatin Calcium [Lipitor 20mg 20 mg PO HS 01/05/21 01/05/21 History Tab] Metoprolol Succinate [Metoprolol 50 mg PO DAILY 01/05/21 01/05/21 History Succinate 50mg Tablet*] Quetiapine Fumarate 25 mg PO HS 01/05/21 01/05/21 History lisinopriL [Prinivil 20mg Tablet] 20 mg PO BID 01/05/21 01/05/21 History Allergies Allergy/AdvReac Type Severity Reaction Status Date / Time acetaminophen [From NYQUIL] Allergy Unknown EVYKY/JITTE Verified 01/05/21 02:57 RY dextromethorphan Allergy Unknown EVYKY/JITTE Verified 01/05/21 02:57 [From NYQUIL] RY diphenhydramine Allergy Unknown I-RASH Verified 01/05/21 02:57 [From BENADRYL] doxylamine [From NYQUIL] Allergy Unknown EVYKY/JITTE Verified 01/05/21 02:57 RY pseudoephedrine [From NYQUIL] Allergy Unknown SHAKY/JITTE Verified 01/05/21 02:57 RY Exam Vital signs and Labs for Last 24 Hours: Temp Pulse Resp BP Pulse Ox 98.0 F 90 18 132/85 97 01/05/21 07:29 01/05/21 07:29 01/05/21 07:29 01/05/21 07:29 01/05/21 07:29 Laboratory Results - last 24 hr 01/04/21 23:30: WBC 10.7, RBC 5.09, Hgb 14.4, Hct 43.9, MCV 86.2, MCH 28.4, MCHC 32.9, RDW 12.8, Plt Count 365, MPV 7.2 L, Neut % (Auto) 60.0, Lymph % (Auto) 29.7, [place] % (Auto) 7.0, Eos % (Auto) 2.2, Baso % (Auto) 1.2, Neut # (Auto) 6.4, Lymph # (Auto) 3.2, [place] # (Auto) 0.8, Eos # (Auto) 0.2, Baso # (Auto) 0.1, ESR 7 01/04/21 23:30: Sodium 126 L, Potassium 3.4 L, Chloride 90 L, Carbon Dioxide 26, Anion Gap 13.4, BUN 6 L, Creatinine 0.90, Estimated Creat Clear 57, Estimated GFR 62, Est GFR ( Amer) 75, Glucose 115 H, Calcium 9.9, Total Bilirubin 0.5, Direct Bilirubin 0.4, Conjugated Bilirubin 0.0, Indirect Bilirubin 0.1, Unconjugated Bilirubin 0.1, AST 47 H, ALT 28, Alkaline Phosphatase 95, Troponin I < 0.01, C-Reactive Protein 2.2, Total Protein 8.2, Albumin 4.8 01/04/21 23:30: Procalcitonin 0.041, TSH 9.97 H, Thyroxine (T4) 8.1 01/04/21 23:30: Plasma/Serum Alcohol 12 H 01/05/21 01:25: Urine Color Yellow, Urine Appearance Clear, Urine pH 7.5, Ur Specific [place] 1.015, Urine Protein Negative, Urine Glucose (UA) Negative, Urine Ketones Negative, Urine Blood Negative, Urine Nitrate Positive, Urine Bilirubi
--- NOTE | 2021-01-05 10:46 | HMH.HPDC ---
General - General Admission date:: 01/05/21 Discharge date: 01/05/21 *Admission Date: 01/05/21 *Chief complaint: Passed out *History of present illness: This is a 70 year old white female who was admitted after a syncope episode. The patient states she was started on seroquel and took her first dose last night. she states she woke up to go to the bathroom in the middle of the night and blacked out. she lost control of her bowels and had diarrhea and was confused for about an hour after the episode. she states she had never felt like this before and knows it was from the medication. she also takes ativan and does consume alcohol as well. she denies cp, pressure, soa or edema. no fever, chills, n/v/d, pnd or orthopnea. she states no syncope prior to this. no racing of the heart. no symptoms of syncope or dizziness since the episode (Per Mariely Granados APRN). [facility] History I have reviewed the patient's past medical history: Yes Medical History: Reports:: Anxiety, Hyperlipidemia, Hypertension *Have you ever received a pneumonia vaccine?: Yes *Have you received a flu vaccine this season?: Yes Other Surgeries: Yes: Appendectomy, Hysterectomy-Total Amputation: No Fractures: No - *Social History Smoking Status: Current every day smoker Tobacco Type: cigarettes # Packs/Day (cigarettes): 2 Alcohol Intake: current Alcohol Intake Frequency:: a few times a week Substance Use Type: denies use *Occupational Status:: unemployed *Travel in the last 8 weeks: None - Psychiatric History Pschychiatric History:: Reports:: Anxiety Family Hx:: Heart Attack Review of Systems - Review of Systems Review of systems:: pertinent systems reviewed and negative unless documented below - Constitutional Denies anorexia, Denies daytime sleepiness - Eyes Denies blind spots, Denies change in vision - ENT Denies abnormal hearing, Denies dry mouth - *Cardiovascular Denies chest pain, Denies chest pain with activity - *Respiratory Denies chest congestion, Denies cough - *Gastrointestinal Denies abdominal pain, Denies belching, Denies bloating - *Musculoskeletal Denies abnormal walking, Denies body aches - Integumentary/Breasts Denies bleeding lesions, Denies change in hair - *Neurologic Reports confusion, Reports fainting, Denies localized weakness, Denies seizure-like activity - Psychiatric Denies lack of enjoyment, Denies hearing things others do not hear, Denies behavioral changes - Endocrine Denies cold intolerance, Denies heat intolerance, Denies rapid, pounding, or irregular heartbeat - Hematologic/Lymphatic Denies easy bleeding, Denies enlarged lymph nodes - Allergic/Immunologic Denies GI upset with certain foods, Denies tongue swelling Exam Vital signs and Labs for Last 24 Hours: Temp Pulse Resp BP Pulse Ox 98.0 F 90 18 132/85 97 01/05/21 07:29 01/05/21 07:29 01/05/21 07:29 01/05/21 07:29 01/05/21 07:29 Laboratory Results - last 24 hr 01/04/21 23:30: WBC 10.7, RBC 5.09, Hgb 14.4, Hct 43.9, MCV 86.2, MCH 28.4, MCHC 32.9, RDW 12.8, Plt Count 365, MPV 7.2 L, Neut % (Auto) 60.0, Lymph % (Auto) 29.7, [place] % (Auto) 7.0, Eos % (Auto) 2.2, Baso % (Auto) 1.2, Neut # (Auto) 6.4, Lymph # (Auto) 3.2, [place] # (Auto) 0.8, Eos # (Auto) 0.2, Baso # (Auto) 0.1, ESR 7 01/04/21 23:30: Sodium 126 L, Potassium 3.4 L, Chloride 90 L, Carbon Dioxide 26, Anion Gap 13.4, BUN 6 L, Creatinine 0.90, Estimated Creat Clear 57, Estimated GFR 62, Est GFR ( Amer) 75, Glucose 115 H, Calcium 9.9, Total Bilirubin 0.5, Direct Bilirubin 0.4, Conjugated Bilirubin 0.0, Indirect Bilirubin 0.1, Unconjugated Bilirubin 0.1, AST 47 H, ALT 28, Alkaline Phosphatase 95, Troponin I < 0.01, C-Reactive Protein 2.2, Total Protein 8.2, Albumin 4.8 01/04/21 23:30: Procalcitonin 0.041, TSH 9.97 H, Thyroxine (T4) 8.1 01/04/21 23:30: Plasma/Serum Alcohol 12 H 01/05/21 01:25: Urine Color Yellow, Urine Appearance Clear, Urine pH 7.5, Ur Specific [place]
--- NOTE | 2021-01-05 12:30 | PC.NURSE ---
Educated pt on synthroid called into [facility] and d/c instructions.
== END 2021-01-05 13:08 | disposition home or self-care (01) ==
LOC: ER 23:58 → 2ND 01-05 01:39
PROVIDERS: Admitting Provider Emergency Medicine; Emergency Provider Emergency Medicine; PCP Emergency Medicine; Visit Provider Emergency Medicine
DX: R55 Syncope and collapse (principal); R41.0 Disorientation, unspecified; E78.5 Hyperlipidemia, unspecified; I10 Essential (primary) hypertension; T43.595A Adverse effect of other antipsychotics and neuroleptics, initial encounter; F17.210 Nicotine dependence, cigarettes, uncomplicated; E87.1 Hypo-osmolality and hyponatremia; S06.0X9A Concussion with loss of consciousness of unspecified duration, initial encounter; F41.9 Anxiety disorder, unspecified; R15.9 Full incontinence of feces
CPT/HCPCS: 70450; 71045; 72125; 72170; 80048; 80076; 80305; 81001; 83735; 84145; 84436; 84443; 84484; 85025; 85651; 86140; 87086; 87088; 87186; 93005; 93270; 93306; 96365; 99284; G0378; U0003

== ENCOUNTER → 2021-05-03 13:49 | Outpatient (CLI) | payer MEDICARE, SELFPAY ==
[2021-05-03 14:22] LABS: Amphetamine/Metha Screen,Urine Negative ng/ml (<1000); Benzodiazepines Screen,Urine Negative ng/ml (<200)
[2021-05-03 14:23] LABS: Barbiturates Screen,Urine Negative ng/ml (<200)
[2021-05-03 14:24] LABS: Cannabinoid Screen,Urine Negative ng/ml (<50); Methadone Screen,Urine Negative ng/ml (<300)
[2021-05-03 14:25] LABS: Cocaine Screen,Urine Negative ng/ml (<300)
[2021-05-03 14:26] LABS: Opiate Screen,Urine Negative ng/ml (<300)
[2021-05-03 14:27] LABS: Phencyclidine Screen,Urine Negative ng/ml (<25)
== END ==
PROVIDERS: Visit Provider Physician Assistant
DX: Z79.899 Other long term (current) drug therapy (principal)
CPT/HCPCS: 80305

== ENCOUNTER → 2021-05-23 13:39 | Outpatient (CLI) | payer MEDICARE, SELFPAY ==
[2021-05-23 15:32] LABS: Amphetamine/Metha Screen,Urine Negative ng/ml (<1000)
[2021-05-23 15:33] LABS: Barbiturates Screen,Urine Negative ng/ml (<200)
[2021-05-23 15:34] LABS: Benzodiazepines Screen,Urine Negative ng/ml (<200); Cannabinoid Screen,Urine Negative ng/ml (<50)
[2021-05-23 15:35] LABS: Cocaine Screen,Urine Negative ng/ml (<300)
[2021-05-23 15:36] LABS: Methadone Screen,Urine Negative ng/ml (<300); Opiate Screen,Urine Negative ng/ml (<300)
[2021-05-23 15:37] LABS: Phencyclidine Screen,Urine Negative ng/ml (<25)
== END ==
PROVIDERS: Visit Provider Physician Assistant
DX: Z79.899 Other long term (current) drug therapy (principal)
CPT/HCPCS: 80305

== ENCOUNTER 2021-06-28 18:52 | Observation (INO) | payer MEDICARE, SELFPAY ==
[2021-06-28 18:52] VITALS: BP 122/82; PULSE 88; RESP 18; TEMP 36.7; O2SAT 98; BMI 24.0
[2021-06-28 18:54] VITALS: BMI 24.0
--- NOTE | 2021-06-28 18:54 | XR_ITS ---
PROCEDURE INFORMATION: Exam: XR Right Hip Exam date and time: 06/28/2021 6:54 PM Age: 70 years old Clinical indication: Injury or trauma; Fall; Blunt trauma (contusions or hematomas); Right; Hip; Additional info: Fall, pain TECHNIQUE: Imaging protocol: XR Right hip. Views: 2 or 3 views hip with pelvis when performed. COMPARISON: CR XR PELVIS 1-2V 01/05/2021 12:23 AM FINDINGS: Bones/joints: There is a minimally displaced right femoral neck fracture. Mild impaction. Soft tissues: Unremarkable. IMPRESSION: Mildly impacted right femoral neck fracture
--- NOTE | 2021-06-28 19:00 | PC.NURSE ---
pt in gown with warm blankets on her. Pt is cold r/t being outside after she fell at her home.
[2021-06-28 19:09] LABS: Basophils # 0.1 K/mm3 (0-0.2); Basophils % 0.8 % (0.1-2.0); Chloride 92 mmol/L (98-107); Eosinophils # 0.1 K/mm3 (0.0-0.4); Eosinophils % 0.7 % (0.1-12.0); Hematocrit 44.1 % (37.0-47.0); Hemoglobin 14.4 g/dL (12.2-16.2); Lymphocytes # 1.3 K/mm3 (0.7-4.5); Lymphocytes % 9.7 % (10-50); Mean Corpuscular HGB Conc 32.6 g/dL (31.8-35.4); Mean Corpuscular Hemoglobin 29.4 pg (27.0-31.2); Mean Corpuscular Volume 90.3 fl (81-99); Monocytes # 0.5 K/mm3 (0.1-1.0); Neutrophils # 11.1 K/mm3 (1.8-7.8); Neutrophils % 84.8 % (37.0-80.0); Platelet Count 358 K/mm3 (142-424); Red Blood Count 4.89 M/mm3 (4.20-5.40); Red Cell Distribution Width 12.5 % (11.5-17.5); White Blood Count 13.1 K/mm3 (4.8-10.8)
[2021-06-28 19:10] LABS: Potassium 3.6 mmoL/L (3.5-5.1); Sodium 128 mmol/L (136-145)
[2021-06-28 19:12] LABS: Alanine Aminotransferase 35 U/L (12-78); Alkaline Phosphatase 122 U/L (38-126); Aspartate Amino Transferase 56 U/L (14-36); Bilirubin,Total 0.3 mg/dl (0.2-1.3); Creatinine Clearance Estimated 53 mL/min (50-200); Estimated Glomerular Filt Rate 122 ml/min (>60); GFR (African American) 148 ML/MIN (>60)
[2021-06-28 19:13] LABS: Albumin Level 4.6 g/dl (3.5-5.0); Albumin/Globulin Ratio 1.2 (1.1-1.8); Anion Gap 16.6 mEq/L (5-15); Blood Urea Nitrogen < 2 mg/dl (7-17); Calcium 9.2 mg/dl (8.4-10.2); Carbon Dioxide 23 mmol/L (22.0-30.0); Globulin 3.8 g/dL (1.3-3.2); Glucose 129 mg/dl (74-100); Total Protein,Serum 8.4 g/dl (6.3-8.2)
--- NOTE | 2021-06-28 19:22 | XR_ITS ---
PROCEDURE INFORMATION: Exam: XR Chest Exam date and time: 06/28/2021 7:22 PM Age: 70 years old Clinical indication: Pain; Other: Right hip FX TECHNIQUE: Imaging protocol: XR of the chest. Views: 4 or more views. COMPARISON: CR XR CHEST AP 01/05/2021 12:22 AM FINDINGS: Lungs: Unremarkable. No consolidation. Pleural spaces: Unremarkable. No pleural effusion. No pneumothorax. Heart/Mediastinum: Unremarkable. No cardiomegaly. Bones/joints: Unremarkable. IMPRESSION: No acute findings.
[2021-06-28 19:34] LABS: Coronavirus 19, PCR Not Detected (NotDetected); Influenza A, PCR Not Detected (NotDetected); Influenza B, PCR Not Detected (NotDetected)
--- NOTE | 2021-06-28 19:36 | HMH.EDGENADL ---
ED Disposition Clinical Impression: Closed right hip fracture Qualifiers: Encounter type: initial encounter Qualified Code(s): S72.001A - Fracture of unspecified part of neck of right femur, initial encounter for closed fracture Disposition: Admitted As Inpatient Condition on Discharge: Fair - Critical Care Critical Care Time: No Attestation: On 06/28/21, the high probability of a clinically significant, sudden or life threatening deterioration of the following system(s) required my full and direct attention, intervention and personal management. The time I documented below is in addition to time spent performing reported procedures but includes the following listed in this critical care notation. Medical Decision Making - Durga Inquiry Pt receiving controlled substance: Yes Durga was queried for this patient: Yes Risks and benefits of using a controlled substance: were not discussed with pt by me Vital Signs: 06/28/21 18:52 Temperature 98.0 F Temperature Source Oral Pulse Rate [Right Radial] 88 Respiratory Rate 18 Blood Pressure [Right Arm] 122/82 Blood Pressure Mean [Right Arm] 95 Blood Pressure Source [Right Arm] Automatic Cuff Blood Pressure Position [Right Arm] Sitting 02 Sat by Pulse Oximetry 98 Oxygen Delivery Method Room Air - Lab Data Lab Results 06/28/21 18:50: WBC 13.1 H, RBC 4.89, Hgb 14.4, Hct 44.1, MCV 90.3, MCH 29.4, MCHC 32.6, RDW 12.5, Plt Count 358, MPV 7.0 L, Neut % (Auto) 84.8 H, Lymph % (Auto) 9.7 L, Aiken % (Auto) 4.0, Eos % (Auto) 0.7, Baso % (Auto) 0.8, Neut # (Auto) 11.1 H, Lymph # (Auto) 1.3, Aiken # (Auto) 0.5, Eos # (Auto) 0.1, Baso # (Auto) 0.1 06/28/21 18:50: Sodium 128 L, Potassium 3.6, Chloride 92 L, Carbon Dioxide 23, Anion Gap 16.6 H, BUN < 2 L, Creatinine 0.50 L, Estimated Creat Clear 53, Estimated GFR 122, Est GFR ( Amer) 148, Glucose 129 H, Calcium 9.2, Total Bilirubin 0.3, AST 56 H, ALT 35, Alkaline Phosphatase 122, Total Protein 8.4 H, Albumin 4.6, Globulin 3.8 H, Albumin/Globulin Ratio 1.2 Result diagrams: 06/28/21 18:50 06/28/21 18:50 Orders (Tests/Meds): ED MEDICATIONS Discontinued Medications Generic Name Dose Route Start Last Admin Trade Name Mirtha PRN Reason Stop Dose Admin Morphine Sulfate 4 mg 06/28/21 19:32 06/28/21 19:43 Morphine 4mg/Ml Syringe IV 06/28/21 19:33 4 mg ONCE ONE Administration Ondansetron HCl 4 mg 06/28/21 19:32 06/28/21 19:43 Ondansetron 4mg/2ml Vial IV 06/28/21 19:33 4 mg ONCE ONE Administration ORDERS Category Date Time Status Consult to Orthopedic Surgery [CONS] Stat Cons 06/28/21 19:41 Ordered Rapid PCR Covid and Flu A/B Stat Lab 06/28/21 19:29 Received Urinalysis and Microscopic Stat Lab 06/28/21 19:50 Received - Radiology Data #1 Image(s): Chest, Hip Image Reviewed: Yes I reviewed the patient's radiology image, Yes I have reviewed radiologist's interpretation PROCEDURE INFORMATION: Exam: XR Chest Exam date and time: 06/28/2021 7:22 PM Age: 70 years old Clinical indication: Pain; Other: Right hip FX TECHNIQUE: Imaging protocol: XR of the chest. Views: 4 or more views. COMPARISON: CR XR CHEST AP 01/05/2021 12:22 AM FINDINGS: Lungs: Unremarkable. No consolidation. Pleural spaces: Unremarkable. No pleural effusion. No pneumothorax. Heart/Mediastinum: Unremarkable. No cardiomegaly. Bones/joints: Unremarkable. IMPRESSION: No acute findings. EDURE INFORMATION: Exam: XR Right Hip Exam date and time: 06/28/2021 6:54 PM Age: 70 years old Clinical indication: Injury or trauma; Fall; Blunt trauma (contusions or hematomas); Right; Hip; Additional info: Fall, pain TECHNIQUE: Imaging protocol: XR Right hip. Views: 2 or 3 views hip with pelvis when performed. COMPARISON: CR XR PELVIS 1-2V 01/05/2021 12:23 AM FINDINGS: Bones/joints: There is a minimally displa
--- NOTE | 2021-06-28 19:37 | PC.NURSE ---
Dr. Fernandez pageivan.
--- NOTE | 2021-06-28 19:38 | PC.NURSE ---
on phone with dr nowak
--- NOTE | 2021-06-28 19:39 | PC.NURSE ---
Dr. Bjorn lake.
[2021-06-28 19:56] LABS: Microscopic, Urine URINE MICROSCOPIC (MICROSCOPIC)
[2021-06-28 19:58] LABS: Appearance,Urine CLEAR (Clear); Bilirubin,Urine Negative (Negative); Blood, Urine Negative (Negative); Color,Urine YELLOW (Yellow); Glucose,Urine (UA) Negative (Negative); Ketones,Urine Negative (Negative); Leukocyte Esterase,Urine Negative (Negative); Nitrate,Urine POSITIVE (Negative); Protein,Urine Negative (Negative); Specific Gravity, Urine 1.015 (1.005-1.030); Urobilinogen,Urine 0.2 EU/dl (0.2)
[2021-06-28 20:02] VITALS: BMI 25.5
--- NOTE | 2021-06-28 20:05 | PC.NURSE ---
on phone with dr contreras @ this time
[2021-06-28 20:17] LABS: Bacteria,Urine 3+ /lpf; RBC,Urine Occasional #/hpf (0-3)
--- NOTE | 2021-06-28 20:18 | PC.NURSE ---
password setup as Tacho
[2021-06-28 20:47] VITALS: BP 110/78; PULSE 79; RESP 18; TEMP 36.7; O2SAT 97
[2021-06-28 21:36] VITALS: BP 174/92; PULSE 98; RESP 16; TEMP 36.5; O2SAT 97; BMI 24.8
--- NOTE | 2021-06-28 21:36 | PC.NURSE ---
patient up to floor at this time.
[2021-06-28 22:51] VITALS: O2SAT 97
[2021-06-29] VITALS (17 sets, daily range): BP systolic 93–162; BP diastolic 53–85; PULSE 72–99; RESP 16–20; TEMP 36.1–36.9; O2SAT 93–98; BMI 24.6
--- NOTE | 2021-06-29 04:40 | PC.NURSE ---
pt a&ox4. has rested majority of this shift. requested pain medication X2 this shift. pain medication given per oct. effectiveness noted. remains on room air w/ no c/o soa. Mendoza cath in place draining clear yellow urine. resting in bed at this time. call light within reach.
--- NOTE | 2021-06-29 09:17 | HMH.HP ---
*Admission Date: 06/28/21 *Chief complaint: R HipPain *History of present illness: 70 YOF presented to the [facility] ED per EMS for report of R Hip pain after falling. She states she was on front porch and her sock caught on a nail causing her to trip and fall. She reports crawling to edge of porch to alert her neighbors for help. She denies hitting head or LOC 06/28/21 R Hip XR: FINDINGS: Bones/joints: There is a minimally displaced right femoral neck fracture. Mild impaction. Soft tissues: Unremarkable. IMPRESSION: Mildly impacted right femoral neck fracture Electronically signed by Ar Scott MD 06/28/21 CXR: FINDINGS: Lungs: Unremarkable. No consolidation. Pleural spaces: Unremarkable. No pleural effusion. No pneumothorax. Heart/Mediastinum: Unremarkable. No cardiomegaly. Bones/joints: Unremarkable. IMPRESSION: No acute findings. Electronically signed by Ar Scott MD Ortho was consulted [facility] History I have reviewed the patient's past medical history: Yes Medical History: Reports:: Anxiety, Hyperlipidemia, Hypertension Denies:: Diabetes Mellitus Type 1, Diabetes Mellitus Type 2 *Have you ever received a pneumonia vaccine?: Yes *Have you received a flu vaccine this season?: No Other Surgeries: Yes: Appendectomy, Hysterectomy-Total Amputation: No Fractures: No - *Social History Last grade of school completed: 11th or 12th Smoking Status: Current every day smoker Tobacco Type: cigarettes # Packs/Day (cigarettes): 1 Alcohol Intake: never Alcohol Intake Frequency:: a few times a week Substance Use Type: denies use *Occupational Status:: retired *Travel in the last 8 weeks: None - Psychiatric History Pschychiatric History:: Reports:: Anxiety Family Hx:: No significant family history Review of Systems - Review of Systems Review of systems:: pertinent systems reviewed and negative unless documented below - Constitutional Denies body ache(s), Denies lack of energy - Eyes Denies blurry vision, Denies double vision - ENT Denies dizziness, Denies difficulty swallowing - *Cardiovascular Denies chest pain, Denies shortness of breath - *Respiratory Denies chest congestion, Denies cough - *Gastrointestinal Denies abdominal pain, Denies coffee ground vomit - *Musculoskeletal Reports abnormal walking, Reports joint pain Comments: R Hip Pain - *Neurologic Denies headache(s), Denies numbness, Denies weakness - Psychiatric Denies abnormal sleep pattern, Denies confusion - Endocrine Denies cold intolerance, Denies rapid, pounding, or irregular heartbeat - Hematologic/Lymphatic Denies easy bleeding - Allergic/Immunologic Denies GI upset with certain foods, Denies seasonal runny nose Meds Home Medications Medication Instructions Recorded Confirmed Type amlodipine 2.5 mg tablet 2.5 mg PO DAILY #90 tab 03/30/21 06/28/21 Rx lorazepam 1 mg tablet 1 mg PO TID PRN #90 tab 06/05/21 06/28/21 Rx Atorvastatin Calcium [Lipitor 20mg 20 mg PO DAILY 06/28/21 06/28/21 History Tab] Metoprolol Succinate [Metoprolol 50 mg PO DAILY 06/28/21 06/28/21 History Succinate 50mg Tablet*] lisinopriL [Lisinopril] 20 mg PO BID 06/28/21 06/29/21 History Allergies Allergy/AdvReac Type Severity Reaction Status Date / Time acetaminophen [From NYQUIL] Allergy Unknown SHAKY/JITTE Verified 05/23/21 10:38 RY dextromethorphan Allergy Unknown SHAKY/JITTE Verified 05/23/21 10:38 [From NYQUIL] RY diphenhydramine Allergy Unknown I-RASH Verified 05/23/21 10:38 [From BENADRYL] doxylamine [From NYQUIL] Allergy Unknown SHAKY/JITTE Verified 05/23/21 10:38 RY pseudoephedrine [From NYQUIL] Allergy Unknown SHAKY/JITTE Verified 05/23/21 10:38 RY Exam Vital signs and Labs for Last 24 Hours: Temp Pulse Resp BP Pulse Ox 98.4 F 86 16 154/76 H 97 06/29/21 08:00 06/29/21 08:00 06/29/21 08:00 06/29/21 08:00 06/29/21 08:00 Laboratory Results - last
--- NOTE | 2021-06-29 09:35 | P.CONPHA_ITS ---
[facility] Pharmacy VTE Monitoring - Patient Demographics Admission date: 06/29/21 Report Date: 06/29/21 Time: 09:35 Allergies/Adverse Reactions: Patient Allergies acetaminophen [From NYQUIL] Allergy (Unknown, Verified 05/23/21 10:38) SHAKY/JITTERY dextromethorphan [From NYQUIL] Allergy (Unknown, Verified 05/23/21 10:38) SHAKY/JITTERY diphenhydramine [From BENADRYL] Allergy (Unknown, Verified 05/23/21 10:38) I-RASH doxylamine [From NYQUIL] Allergy (Unknown, Verified 05/23/21 10:38) SHAKY/JITTERY pseudoephedrine [From NYQUIL] Allergy (Unknown, Verified 05/23/21 10:38) BRANDI/DRAGAN Height: 1.64 m Weight: 65.907 kg Patient Problems: Current Active Problems Closed right hip fracture (Acute) - VTE Risk Labs: VTE Related Lab Results Hgb 14.4 g/dL (12.2-16.2) 06/28/21 18:50 Hct 44.1 % (37.0-47.0) 06/28/21 18:50 Plt Count 358 K/mm3 (142-424) 06/28/21 18:50 BUN < 2 mg/dl (7-17) L 06/28/21 18:50 Creatinine 0.50 mg/dl (0.52-1.04) L 06/28/21 18:50 Estimated Creat Clear 53 mL/min (50-200) 06/28/21 18:50 Was VTE Risk Assessment Performed: Yes VTE Score: 2 Clinical Trial Participant: No - Prophylaxis VTE Prophylaxis Ordered?: Yes Types of VTE Prophylaxis: TEDS Knee High
--- NOTE | 2021-06-29 09:35 | HMH.PHAINT ---
HOME MEDICATION LIST CLARIFIED USING LIST FROM [facility]
--- NOTE | 2021-06-29 13:53 | P.PN_ITS ---
[facility] Anesthesia Checklist - Structural Data Admitted From: Inpatient Planned Operative Procedure/s: r total hip Consent for Planned Operative Procedure(s) Verified: Yes - Airway Assessment C-Spine Mobility Assessed: Yes TMJ Mobility Assessed: Yes Dentition: Edentulous - Neurological Assessment Level of Consciousness: Awake, Alert, Appropriate - Anesthesia Plan Anesthesia Risk discussed: Yes Anesthesia Plan: Verified ASA Class: II Anesthesia Type: Spinal [facility] History I have reviewed the patient's past medical history: Yes Medical History: Reports:: Anxiety, Hyperlipidemia, Hypertension Denies:: Diabetes Mellitus Type 1, Diabetes Mellitus Type 2 *Have you ever received a pneumonia vaccine?: Yes *Have you received a flu vaccine this season?: No Anesthesia experience/problems:: none Other Surgeries: Yes: Appendectomy, Hysterectomy-Total Amputation: No Fractures: No - *Social History Last grade of school completed: 11th or 12th Smoking Status: Current every day smoker Tobacco Type: cigarettes # Packs/Day (cigarettes): 1 Alcohol Intake: never Alcohol Intake Frequency:: a few times a week Substance Use Type: denies use *Occupational Status:: retired *Travel in the last 8 weeks: None - Psychiatric History Pschychiatric History:: Reports:: Anxiety Family Hx:: No significant family history
--- NOTE | 2021-06-29 14:48 | P.PN_ITS ---
[facility] Anesthesia Checklist - Patient Identification Patient Identification: Arm Band - Structural Data Admitted From: Inpatient Planned Operative Procedure/s: Total hip Consent for Planned Operative Procedure(s) Verified: Yes - NPO Status Verified Time NPO: 00:00 - Airway Assessment C-Spine Mobility Assessed: Yes TMJ Mobility Assessed: Yes Dentition: Edentulous - Neurological Assessment Level of Consciousness: Awake Hx Seizures: No Numbness or tingling in extremities: No - Anesthesia Plan Anesthesia Risk discussed: Yes Anesthesia Plan: Verified ASA Class: III Anesthesia Type: MAC w/Spinal [facility] History I have reviewed the patient's past medical history: Yes Medical History: Reports:: Anxiety, Hyperlipidemia, Hypertension Denies:: Diabetes Mellitus Type 1, Diabetes Mellitus Type 2 *Have you ever received a pneumonia vaccine?: Yes *Have you received a flu vaccine this season?: No Anesthesia experience/problems:: none Other Surgeries: Yes: Appendectomy, Hysterectomy-Total Amputation: No Fractures: No - *Social History Last grade of school completed: 11th or 12th Smoking Status: Current every day smoker Tobacco Type: cigarettes # Packs/Day (cigarettes): 1 Alcohol Intake: never Alcohol Intake Frequency:: a few times a week Substance Use Type: denies use *Occupational Status:: retired *Travel in the last 8 weeks: None - Psychiatric History Pschychiatric History:: Reports:: Anxiety Family Hx:: No significant family history
--- NOTE | 2021-06-29 15:02 | SW/DCPLANNER ---
I will speak with this patient regarding discharge plans once surgery and PT/OT evaluation is completed. Patient/family preference at time of discharge is to return home with home health services. CM will continue to follow. Discharge date is unknown at this time.
--- NOTE | 2021-06-29 18:45 | SUR.OPER ---
1520-attempted to update family at this time, family not in waiting room, will continue to try to update 1826-attempted to update family again at this time, family not in waiting at this time
--- NOTE | 2021-06-29 18:47 | SUR.OPER ---
1700-additional ancef 1gm administered at this time per MD orders, see anesthesia record for details
--- NOTE | 2021-06-29 19:45 | SUR.OPER ---
1944-attempted to update family at this time, family not in waiting room
--- NOTE | 2021-06-29 19:51 | XR_ITS ---
PROCEDURE INFORMATION: Exam: XR Right Hip Exam date and time: 06/29/2021 7:51 PM Age: 70 years old Clinical indication: Device placement; Other: Total right hip arthroplasty; Additional info: C-arm case, total right hip arthroplasty TECHNIQUE: Imaging protocol: XR Right hip. Views: 2 or 3 views hip with pelvis when performed. COMPARISON: CR XR HIP RT 2-3V W/PELVIS 06/28/2021 7:09 PM FINDINGS: Bones/joints: Operative fluoroscopy was used to guide right hip arthroplasty. Soft tissues: Unremarkable. IMPRESSION: Operative fluoroscopy was used to guide right hip arthroplasty.
--- NOTE | 2021-06-29 20:35 | XR_ITS ---
PROCEDURE INFORMATION: Exam: XR Right Hip Exam date and time: 06/29/2021 8:35 PM Age: 70 years old Clinical indication: Device placement; Other: Total hip; Prior surgery; Surgery date: Post-operative (0-2 days); Additional info: S/P right total hip arthroplasty TECHNIQUE: Imaging protocol: XR Right hip. Views: 2 or 3 views hip with pelvis when performed. COMPARISON: XA XR HIP RT 2-3V W/PELVIS 06/29/2021 5:57 PM FINDINGS: Tubes, catheters and devices: Antibiotic beads and postsurgical changes present. Bones/joints: Right total hip arthroplasty in place. One of the acetabular screws lies outside the iliac bone. Soft tissues: Unremarkable. IMPRESSION: Right total hip arthroplasty.
--- NOTE | 2021-06-29 20:51 | HMH.ANESI ---
[facility] Anesthesia Record Part I Intake, IV Amount: 1,300 Estimated blood loss (mL): 500 Urine output (mL): 600 Blood Pressure: 93/61 SaO2: 97 Pulse Rate: 76 Respiratory Rate: 18 Temperature: 97.0 F Patient is:: Drowsy Stable to PACU at:: 20:48
--- NOTE | 2021-06-29 21:28 | PC.NURSE ---
patient up to floor at this time from surgery.
--- NOTE | 2021-06-29 21:41 | PC.NURSE ---
2112-radiology at bedside 2121-detailed report called to POWER Pardo 2125-pt transported to med/surg room 215 via hospital bed w/ar rails up and left in care of POWER Pardo with bed locked in lowest position, vss, pt stable
--- NOTE | 2021-06-29 23:15 | HMH.OPNOTE ---
Date of procedure: 06/29/21 Pre-op Diagnosis:: Closed, displaced femoral neck fracture, right hip Post-op Diagnosis:: Same Procedure performed:: Total hip arthroplasty, right hip Surgeon:: Yan Fernandez MD Electrical Prospecting Observer(s):: Roxann Avitia PA-C GEOTHERMAL ELECTRICAL ENGINEER:: Avery Dykes Anesthesia: spinal Estimated blood loss (mL): 500 Clinical Note:: Patient is a 70-year-old female who sustained a displaced intra-capsular fracture neck of right femur following a mechanical fall. Patient usually walks independently without any walking aids.? There is no history of any hip pain or problems prior to the injury.? She denies loss of consciousness, chest pain and shortness of breath.? Patient has history of hypertension, hyperlipidemia and anxiety. Given the fracture pattern, her activity level and relatively younger age, following a detailed discussion, patient opted for a total hip arthroplasty to the right hip.? The surgery is indicated to relieve pain and restore function. The operation is clinically indicated and is the standard of care for this type of fracture. Please refer to my consult note for full details. Operative findings:: Displaced sub capital femoral neck fracture of the right hip as noted on the preoperative hip x-rays.? No significant degenerative changes were noted in the hip joint.? The acetabular and proximal femur bone quality is soft/osteoporotic. Implants: The following [place] implants were used- [place] Accolade cemented femoral stem, 127 degree neck angle, size 2 Trident 2 Tritanium multihole acetabular shell, 54 mm MDM cement less liner, 42 mm inner diameter Restorationist MDM X3 insert 28/48, size 42E Biolox delta ceramic head V 40 femoral head, size 28 mm x +0 mm neck length 6.5 mm low-profile hex screws x5 [place] antibiotic Simplex P bone cement with tobramycin Operative note:: On the day of the procedure the patient was met on the floor, and a physical examination was performed. The operating side and site were marked and initialed by me. I have reviewed the diagnosis, natural history and management options in detail including both the nonsurgical and surgical. Given the nature of the fracture, her age and activity level prior to the fall, I have recommended surgery in the form of a total hip arthroplasty for the right hip. I have discussed the procedure, risks and benefits, alternatives, potential complications and expected outcomes with the patient. The complications discussed include but are not limited to infection, injury to nerves and blood vessels, DVT and PE, femur fracture, limb length inequality, dislocation, implant failure, loosening, acetabular wear, osteolysis, periprosthetic femur fracture, heterotopic ossification, abductor weakness and a limp, incomplete relief of pain, incomplete return of function or motion, likely need for further surgery in future including revision, anesthetic/medical complications including heart attack, stroke, transfusion reactions and even . We discussed how any of these events can be devastating. We have discussed nonsurgical alternatives as well. We also discussed the postoperative course including the rehab and physical therapy required.? Patient understood the risks, agreed to proceed with surgery, signed the consent form and no guarantees or assurances were given or implied. The patient was brought to the operating room and a spinal anesthesia was administered by the body repairer. The patient was then transferred onto the operating table and positioned in the left lateral decubitus position with the right hip facing upwards. All the bony prominences were well-padded. The left lower extremity was then prepped (prepped with isopropyl alcohol followed by chlorhexidine) and draped in the usual sterile fashion. The entire operative team used isolation suits and room traffic was controlled. The surgical landmarks and incision was marked over the skin with a marking pen. Ioban sterile drape was used to cover the
[2021-06-30 03:44] VITALS: BP 127/68; PULSE 98; RESP 17; TEMP 36.9; O2SAT 94
[2021-06-30 05:16] VITALS: BMI 24.5
--- NOTE | 2021-06-30 06:53 | PC.NURSE ---
No acute changes noted. Pt has rested well this shift. Has c/o discomfort x1. She has also displayed some anxiety upon arrival to floor. Family notified this nurse that pt is an alcoholic and concerned about DTs. MD notified. Rally pack and Serax ordered. VSS. Pt states she feels better this AM. DSG C/D/I. Abductor pillow in place. Ice pack also in place. SCDs to LLE. F/C draining to bedside. Will continue to monitor.
[2021-06-30 07:05] LABS: Basophils % 0.3 % (0.1-2.0); Eosinophils % 0.3 % (0.1-12.0); Hemoglobin 10.8 g/dL (12.2-16.2); Lymphocytes % 10.6 % (10-50); Mean Corpuscular HGB Conc 31.7 g/dL (31.8-35.4); Mean Corpuscular Hemoglobin 29.1 pg (27.0-31.2); Mean Corpuscular Volume 91.8 fl (81-99); Mean Platelet Volume 8.2 fl (7.4-10.4); Monocytes # 0.8 K/mm3 (0.1-1.0); Monocytes % 7.9 % (1.7-9.3); Neutrophils # 7.7 K/mm3 (1.8-7.8); Neutrophils % 80.8 % (37.0-80.0); Platelet Count 285 K/mm3 (142-424); White Blood Count 9.5 K/mm3 (4.8-10.8)
[2021-06-30 07:13] LABS: Anion Gap 4.7 mEq/L (5-15); Blood Urea Nitrogen 2 mg/dl (7-17); Calcium 8.3 mg/dl (8.4-10.2); Carbon Dioxide 29 mmol/L (22.0-30.0); Chloride 98 mmol/L (98-107); Creatinine Clearance Estimated 55 mL/min (50-200); Estimated Glomerular Filt Rate 158 ml/min (>60); GFR (African American) 191 ML/MIN (>60); Glucose 113 mg/dl (74-100); Potassium 3.7 mmoL/L (3.5-5.1); Sodium 128 mmol/L (136-145)
[2021-06-30 08:00] VITALS: BP 136/76; PULSE 96; RESP 16; TEMP 36.9; O2SAT 94
--- NOTE | 2021-06-30 09:03 | HMH.PHACONS ---
- Pharmacy Consult Date: 06/30/21 Time: 09:03 Referring provider: DR. MENDENHALL Reason for Consult:: VANCOMYCIN DOSING Allergies and ADEs:: Allergies Allergy/AdvReac Type Severity Reaction Status Date / Time acetaminophen [From NYQUIL] Allergy Unknown SHAKY/JITTE Verified 05/23/21 10:38 RY dextromethorphan Allergy Unknown SHAKY/JITTE Verified 05/23/21 10:38 [From NYQUIL] RY diphenhydramine Allergy Unknown I-RASH Verified 05/23/21 10:38 [From BENADRYL] doxylamine [From NYQUIL] Allergy Unknown SHAKY/JITTE Verified 05/23/21 10:38 RY pseudoephedrine [From NYQUIL] Allergy Unknown SHAKY/JITTE Verified 05/23/21 10:38 RY Home Medications:: Home Medications Medication Instructions Recorded Confirmed Type amlodipine 2.5 mg tablet 2.5 mg PO DAILY #90 tab 03/30/21 06/28/21 Rx lorazepam 1 mg tablet 1 mg PO TID PRN #90 tab 06/05/21 06/28/21 Rx Atorvastatin Calcium [Lipitor 20mg 20 mg PO DAILY 06/28/21 06/28/21 History Tab] Metoprolol Succinate [Metoprolol 50 mg PO DAILY 06/28/21 06/28/21 History Succinate 50mg Tablet*] lisinopriL [Lisinopril] 20 mg PO BID 06/28/21 06/29/21 History Height: 1.64 m Weight: 65.9 kg Laboratory Results:: Laboratory Results - last 24 hr 06/29/21 12:23: Blood Type AB Positive, Antibody Screen Negative 06/30/21 05:52: WBC 9.5 D, RBC 3.70 L, Hgb 10.8 L, Hct 34.0 L, MCV 91.8, MCH 29.1, MCHC 31.7 L, RDW 13.0, Plt Count 285, MPV 8.2, Neut % (Auto) 80.8 H, Lymph % (Auto) 10.6, Glades % (Auto) 7.9, Eos % (Auto) 0.3, Baso % (Auto) 0.3, Neut # (Auto) 7.7, Lymph # (Auto) 1.0, Glades # (Auto) 0.8, Eos # (Auto) 0.0, Baso # (Auto) 0.0 06/30/21 05:52: Sodium 128 L, Potassium 3.7, Chloride 98, Carbon Dioxide 29, Anion Gap 4.7 L, BUN 2 L, Creatinine 0.40 L, Estimated Creat Clear 55, Estimated GFR 158, Est GFR ( Amer) 191 D, Glucose 113 H, Calcium 8.3 L Medical History: Reports:: Anxiety, Hyperlipidemia, Hypertension Denies:: Diabetes Mellitus Type 1, Diabetes Mellitus Type 2, Seizures Assessment and Plan (1) Closed right hip fracture Status: Acute Qualifiers: Encounter type: initial encounter Qualified Code(s): S72.001A - Fracture of unspecified part of neck of right femur, initial encounter for closed fracture Category: Medical Code(s): S72.001A - Fracture of unspecified part of neck of right femur, initial encounter for closed fracture (2) Anxiety Status: Chronic Category: Medical Code(s): F41.9 - Anxiety disorder, unspecified (3) Hyperlipidemia Status: Chronic Qualifiers: Hyperlipidemia type: unspecified Qualified Code(s): E78.5 - Hyperlipidemia, unspecified Category: Medical Code(s): E78.5 - Hyperlipidemia, unspecified (4) Hypertension Status: Chronic Qualifiers: Hypertension type: essential hypertension Qualified Code(s): I10 - Essential (primary) hypertension Category: Medical Code(s): I10 - Essential (primary) hypertension (5) Insomnia Status: Chronic Qualifiers: Insomnia type: primary Qualified Code(s): F51.01 - Primary insomnia Category: Medical Code(s): G47.00 - Insomnia, unspecified - Assessment and plan all Dx Assessment and Plan for all problems:: Pharmacokinetic dosing service Objective: Patient: Floor: Age: 70 yo Serum creatinine: 0.40 mg/dL Height: 64.6 Inches Weight (kg): 66 Assessment: IBW (kg): 56.08 Dosing wt(kg): 66 Estimated Creatinine clearance (ml/min): 117.5 CRCL method: Cockcroft and Gault using ibw(default). Drug selected: Vancomycin Loading dose (mg): Vd (liters): 46.2 (factor used: 0.7 L/kg) Christian (hr-1): 0.102 Half life (hrs): 6.80 CLvanco=?? 4.712 L/hr Recommended dose: 1250 mg Interval: 12 hrs Infusion time (hrs): 2.0 Predicted peak (mcg/mL): 34.7 Predicted trough (mcg/mL): 12.51 Total body weight i
--- NOTE | 2021-06-30 09:12 | HMH.ORTHPN ---
Subjective Date: 06/30/21 <Roxann Avitia - 06/30/21 09:13> Time: 08:45 <AvitiaRoxann clark - 06/30/21 09:13> Principal diagnosis: right hip fracture; s/p total hip arthroplasty <Roxann Avitia - 06/30/21 09:13> Interval history: Patient is a 70-year-old female who underwent right total hip arthroplasty yesterday afternoon after sustaining a right subcapital hip fracture. Today she is postop day #1. This morning the patient is sitting in a chair at the bedside. She reports that she is having some right hip pain/soreness, however she reports that it is well controlled with medication. She states that physical therapy and occupational therapy have both been by to see her this morning, and reports both went well. She states that she is eating and drinking well. She denies nausea, vomiting, shortness of breath, or chest pain. No history of fevers, rigors, chills, or distal tingling/numbness. <AvitiaRoxann clark - 06/30/21 13:29> PN: Obj Ex Vital signs: Temp Pulse Resp BP Pulse Ox 98.6 F 93 H 20 94/64 L 94 L 06/30/21 11:14 06/30/21 11:14 06/30/21 11:14 06/30/21 11:14 06/30/21 11:14 <FernandezYan Cardenas - 07/01/21 07:24> Temp Pulse Resp BP Pulse Ox 98.4 F 96 H 16 136/76 94 L 06/30/21 08:00 06/30/21 08:00 06/30/21 08:00 06/30/21 08:00 06/30/21 08:00 <Roxann Avitia - 06/30/21 09:13> Narrative: Laboratory Results - last 24 hr 06/30/21 05:52: WBC 9.5 D, RBC 3.70 L, Hgb 10.8 L, Hct 34.0 L, MCV 91.8, MCH 29.1, MCHC 31.7 L, RDW 13.0, Plt Count 285, MPV 8.2, Neut % (Auto) 80.8 H, Lymph % (Auto) 10.6, [place] % (Auto) 7.9, Eos % (Auto) 0.3, Baso % (Auto) 0.3, Neut # (Auto) 7.7, Lymph # (Auto) 1.0, [place] # (Auto) 0.8, Eos # (Auto) 0.0, Baso # (Auto) 0.0 06/30/21 05:52: Sodium 128 L, Potassium 3.7, Chloride 98, Carbon Dioxide 29, Anion Gap 4.7 L, BUN 2 L, Creatinine 0.40 L, Estimated Creat Clear 55, Estimated GFR 158, Est GFR ( Amer) 191 D, Glucose 113 H, Calcium 8.3 L Microbiology 06/28/21 19:50 Urine,Catheterized Urine Culture - Final Escherichia coli <Yan Fernandez - 07/01/21 07:23> - Constitutional no acute distress, cooperative <Roxann Avitai 06/30/21 09:22> - Routine Respiratory Exam Absent: respiratory distress <Roxann Avitia 06/30/21 09:22> Comments: Symmetric chest movement, able to speak in complete sentences <Roxann Avitia 06/30/21 09:22> - Routine Cardiovascular Exam Present: RRR. Absent: JVD <Roxann Avitia 06/30/21 09:22> Comments: normal peripheral pulses <Roxann Avitia 06/30/21 09:22> - Routine Extremities Exam Present: pulses intact, normal capillary refill. Absent: calf tenderness <Roxann Avitia 06/30/21 09:22> Comments: Upon examination of the lower extremities: The limb lengths are equal. Dressings over the right hip are clean, dry, intact. No evidence of bleeding or drainage noted. Attempted movements of the right hip are painful. Thigh and calf are soft and nontender; Homans' sign is negative. No clinical evidence of DVT noted. Posterior tibial pulse 2+; capillary refill is brisk. Sensation to light touch is grossly intact. Patient is actively mobilizing the hip, knee, and foot. Postoperative check x-ray is satisfactory. <Roxann Avitia 06/30/21 09:35> - Routine Skin Exam Present: intact, normal turgor. Absent: erythema <Roxann Avitia 06/30/21 09:35> - Routine Neurological Exam Present: alert, oriented X3, moving all extremities, normal tone. Absent: sensory deficit, motor deficit <Roxann Avitia - 06/30/21 09:35> - Routine Psychiatric Exam Present: normal affect, normal thought process, cooperative <Roxann Avitia - 06/30/21 09:35> - Urinary Catheter Management Mendoza Cath placed during this visit: no <Yan Fernandez - 07/01/21 07:23> no <Roxann Avitia - 06/30/21 13:30> Urethral indwelling: Yes <Richard Avitia
--- NOTE | 2021-06-30 09:23 | HMH.PTEV ---
Physical Therapy Evaluation Rehab PT IP Evaluation Start: 06/29/21 20:50 Freq: ONCE Status: Active Protocol: Document 06/30/21 08:30 PHORNE (Rec: 06/30/21 09:23 PHORNE [id number]) Subjective/History History History [address] [facility] after fall at home with resulting R hip fx. Now S/P R JENNIFER with post hip prec. She reports she lives with son, no steps to enter the home and she was independent with all mobility prior to adm. Subjective Subjective She c/o pain in the R hip this am. Rehab PT IP Eval Objective Appearance Patient Behavior Appropriate Patient Orientation Person,Place,Time Difficulty following instructions none Speech Pattern Clear,Appropriate Ambulation Patient Able to Ambulate Yes Ambulation Observation IP General Gait Pattern Observation Antalgic Gait,Shuffling Step, Decrease Stride Lngth (R), Decrease Stride Lngth (L) Ambulation Distance (feet) 5 Ambulation Assistive Device Rolling Walker Ambulation Ability Contact Guard/Hand Hold Balance Ability to Arise Able, uses arms to help Sitting Balance Steady, safe Standing Balance Steady, wide stance Dynamic Sitting Balance Ability Good Dynamic Standing Balance Ability Fair Transfers Bed Transfer Ability Minimal x 1 (25% assist) Chair Transfer Ability Contact Guard/Hand Hold Sit to Stand Bed Transfer Ability Minimal x 1 (25% assist) Sit to Stand Chair Transfer Ability Minimal x 1 (25% assist) Rehab PT IP prob,goals,plan Problems Date of Evaluation: 06/30/21 PT IP Problems Bed Mobility,Transfers,Gait Rehab Potential Rehab Potential Good Equipment Needs Assistive Devices Rolling / Wheeled Walker Plan PT Intervention Plan Bed Mobility,Transfers,Gait, Therapeutic Exercise PT Plan Frequency BID Duration LOS Discharge Goals Bed Transfer Ability Contact Guard/Hand Hold Sit to Stand Chair Transfer Ability Contact Guard/Hand Hold Ambulation Assistive Device Rolling Walker Ambulation Distance (feet) 20 Discharge Plan PT Discharge Plan Pt would benefit from short term rehab stay to prevent further injury, but can return home with assistance and Home Health therapy. G -code Required No
--- NOTE | 2021-06-30 10:08 | HMH.ACPN2 ---
Internal Medicine - PN: Subj *Date: 06/30/21 *Time: 08:47 Interval history: pt sitting up in chair voiced no c/o Exam Vital signs and Labs for Last 24 Hours: Temp Pulse Resp BP Pulse Ox 98.4 F 96 H 16 136/76 94 L 06/30/21 08:00 06/30/21 08:00 06/30/21 08:00 06/30/21 08:00 06/30/21 08:00 Laboratory Results - last 24 hr 06/29/21 12:23: Blood Type AB Positive, Antibody Screen Negative 06/30/21 05:52: WBC 9.5 D, RBC 3.70 L, Hgb 10.8 L, Hct 34.0 L, MCV 91.8, MCH 29.1, MCHC 31.7 L, RDW 13.0, Plt Count 285, MPV 8.2, Neut % (Auto) 80.8 H, Lymph % (Auto) 10.6, [place] % (Auto) 7.9, Eos % (Auto) 0.3, Baso % (Auto) 0.3, Neut # (Auto) 7.7, Lymph # (Auto) 1.0, [place] # (Auto) 0.8, Eos # (Auto) 0.0, Baso # (Auto) 0.0 06/30/21 05:52: Sodium 128 L, Potassium 3.7, Chloride 98, Carbon Dioxide 29, Anion Gap 4.7 L, BUN 2 L, Creatinine 0.40 L, Estimated Creat Clear 55, Estimated GFR 158, Est GFR ( Amer) 191 D, Glucose 113 H, Calcium 8.3 L I & O for Last 24 hours: Intake & Output 06/27/21 06/28/21 06/29/21 06/30/21 11:59 11:59 11:59 11:59 Intake Total 1540 / 1540 Output Total 1500 / 1500 1250 / 1250 Balance -1500 / -1500 290 / 290 Weight 145 lb 4.8 oz 145 lb 4.554 oz Microbiology Reports for the Last 24 Hours: Microbiology 06/28/21 19:50 Urine,Catheterized Urine Culture - Preliminary Gram Negative Rods - Constitutional no acute distress - *Routine HEENT Exam Head: Present: normocephalic Eye: Present: PERRL ENT: Present: mucous membranes moist - *Routine Neck Exam Present: supple. Absent: lymphadenopathy - *Routine Respiratory Exam Present: CTA bilaterally - *Routine Cardiovascular Exam Present: RRR - *Routine Abdominal Exam Present: soft, normoactive bowel sounds. Absent: tenderness - *Routine Extremities Exam Absent: cyanosis, clubbing, edema Comments: rt hip dsg c/d/i - *Routine Skin Exam Present: warm. Absent: rash - *Routine Neurological Exam Present: alert, oriented X3 Assessment and Plan (1) Closed right hip fracture Status: Acute Qualifiers: Encounter type: initial encounter Qualified Code(s): S72.001A - Fracture of unspecified part of neck of right femur, initial encounter for closed fracture Category: Medical Code(s): S72.001A - Fracture of unspecified part of neck of right femur, initial encounter for closed fracture (2) Anxiety Status: Chronic Category: Medical Code(s): F41.9 - Anxiety disorder, unspecified (3) Hyperlipidemia Status: Chronic Qualifiers: Hyperlipidemia type: unspecified Qualified Code(s): E78.5 - Hyperlipidemia, unspecified Category: Medical Code(s): E78.5 - Hyperlipidemia, unspecified (4) Hypertension Status: Chronic Qualifiers: Hypertension type: essential hypertension Qualified Code(s): I10 - Essential (primary) hypertension Category: Medical Code(s): I10 - Essential (primary) hypertension (5) Insomnia Status: Chronic Qualifiers: Insomnia type: primary Qualified Code(s): F51.01 - Primary insomnia Category: Medical Code(s): G47.00 - Insomnia, unspecified - Assessment and plan all Dx Assessment and Plan for all problems:: rounded with dr echevarria all orders per dr daniel ortho to follow chronic low na
--- NOTE | 2021-06-30 10:42 | HMH.OTEV ---
OT Inpatient Evaluation Rehab OT IP Evaluation Start: 06/29/21 20:50 Freq: ONCE Status: Complete Protocol: Document 06/30/21 10:09 ROOSEVELT (Rec: 06/30/21 10:41 ROOSEVELT [id number]) Rehab OT IP Assessment Subjective History Patient is a 70-year-old female who sustained a displaced intra-capsular fracture neck of right femur following a mechanical fall. Patient usually walks independently without any walking aids.? There is no history of any hip pain or problems prior to the injury.? She denies loss of consciousness, chest pain and shortness of breath.? Patient has history of hypertension, hyperlipidemia and anxiety. Given the fracture pattern, her activity level and relatively younger age, following a detailed discussion, patient opted for a total hip arthroplasty to the right hip.? The surgery is indicated to relieve pain and restore function. The operation is clinically indicated and is the standard of care for this type of fracture. Operative findings: Displaced sub capital femoral neck fracture of the right hip as noted on the preoperative hip x-rays.? No significant degenerative changes were noted in the hip joint.? The acetabular and proximal femur bone quality is soft/ osteoporotic. Patient was independent with ADLs and fx'l mobility prior to hospitalization. Patient lives in 1 story with son. Patient stated she fell at home while sweeping her back porch. Subjective I can get up. Instructed Patient on proper hand/foot
--- NOTE | 2021-06-30 10:58 | SW/DCPLANNER ---
RECEIVED A REFERRAL FOR THIS PATIENT FOR HOME HEALTH PT/OT AND SHELTER... PATIENT PRESENTED INTO THE HOSPITAL AFTER HAVING A FALL THAT RESULTED IN AND UNFORTUNATE HIP FRACTURE.. PT/OT BOTH SAW PATIENT AND DID EVAL AND PATIENT DID WELL AND WAS SAFE ENOUGH TO RETURN HOME WITH HELP FROM HER SON.. SHE IS GOING TO NEED A WALKER AND THIS WAS SET UP TO BE DELIVERED TO THE HOSPITAL THROUGH [facility]... PATIENT CHOSE [facility] HER HOME HEALTH AGENCY. PATIENT MAY DISCHARGE HOME TMRW PENDING NO SETBACKS AND [facility] IS TO START SERVICES... PATIENT WAS AGREEABLE TO THE PLAN...
[2021-06-30 11:14] VITALS: BP 94/64; PULSE 93; RESP 20; TEMP 37; O2SAT 94
--- NOTE | 2021-06-30 13:28 | PC.NURSE ---
Patient is less than 24 hours post op. total Right Hip replacement. Patient has unsteady gait, use of walker required for ambulation. Patient has been up to chair and working with PT, tolerating well. Will continue to monitor.
--- NOTE | 2021-06-30 14:01 | HMH.ORTHOCON ---
*Admission Date: 06/28/21 <Roxann Avitia - 06/30/21 14:27> *Reason for consult:: right hip fracture <Roxann Avitia 06/30/21 14:06> *History of present illness: Patient is a pleasant 70-year-old female, admitted as an acute inpatient at [facility] after presenting to the ER on 06/28/2021. She reports that she was on her porch when her sock got caught on a nail causing her to trip and fall, injuring her right hip. She states that she was able to drag herself to the edge of the porch and call to her neighbors for help. She reports that she has minimal pain at rest, but that any movements of the right leg increase her right hip pain. She denies any other injuries including head injury, neck injury, back injury, or loss of consciousness. No history of dizziness, headache, chest pain, or neck pain. She denies chest pain, shortness of breath, numbness or tingling. She reports that she lives at home with her son and usually walks independently without the use of any walking aids. Her past medical history includes hypertension and hyperlipidemia, otherwise she reports that she is overall in good health. <Roxann Avitia 06/30/21 14:10> [facility] History Medical History: Reports:: Anxiety, Hyperlipidemia, Hypertension Denies:: Diabetes Mellitus Type 1, Diabetes Mellitus Type 2, Seizures <Roxann Avitia 06/30/21 14:06> *Have you ever received a pneumonia vaccine?: Yes <Roxann Avitia 06/30/21 14:06> *Have you received a flu vaccine this season?: No <Roxann Avitia 06/30/21 14:06> Anesthesia experience/problems:: none <Roxann Avitia 06/30/21 14:06> Other Surgeries: Yes: Appendectomy, Hysterectomy-Total <Roxann Avitia 06/30/21 14:06> Amputation: No <Roxann Avitia 06/30/21 14:06> Fractures: No <Roxann Avitia 06/30/21 14:06> - *Social History Last grade of school completed: 11th or 12th <Roxann Avitia 06/30/21 14:06> Smoking Status: Current every day smoker <Roxann Avitia 06/30/21 14:06> Tobacco Type: cigarettes <Roxann Avitia 06/30/21 14:06> # Packs/Day (cigarettes): 1 <Roxann Avitia 06/30/21 14:06> Alcohol Intake: current <Roxann Avitia 06/30/21 14:10> Alcohol Intake Frequency:: a few times a week <Roxann Avitia 06/30/21 14:06> Substance Use Type: denies use <Roxann Avitia 06/30/21 14:06> *Occupational Status:: retired <Roxann Avitia 06/30/21 14:06> *Travel in the last 8 weeks: None <Roxann Avitia 06/30/21 14:06> - Psychiatric History Pschychiatric History:: Reports:: Anxiety <Roxann Avitia 06/30/21 14:06> Family Hx:: No significant family history <Roxann Avitia 06/30/21 14:06> Review of Systems - Review of Systems Review of systems:: pertinent systems reviewed and negative unless documented below <Roxann Avitia 06/30/21 14:10> - Constitutional Denies chills, Denies fever(s) <Yan Fernandez 06/30/21 14:51> - Eyes Denies change in vision <Yan Fernandez 06/30/21 14:51> - ENT Denies abnormal hearing, Denies dental pain, Denies difficulty swallowing <Yan Fernandez 06/30/21 14:51> - *Cardiovascular Denies chest pain, Denies shortness of breath, Denies lightheadedness <Roxann Avitia 06/30/21 14:10> - *Respiratory Denies cough, Denies shortness of breath, Denies wheezing <Roxann Avitia 06/30/21 14:10> - *Gastrointestinal Denies abdominal pain, Denies nausea, Denies vomiting <Roxann Avitia 06/30/21 14:10> - *Genitourinary Denies difficulty urinating, Denies painful urination <Roxann Avitia - 06/30/21 14:10> - *Musculoskeletal Reports abnormal walking, Reports joint pain, Reports limited joint movement <Yan Fernandez - 06/30/21 14:51> Denies back pain, Denies neck pain, Denies numbness, Denies tingling <Roxann Avitia - 06/30/21 14:10> - *Neurologic Reports abnormal walking, Denies confusion, Denies dizziness, Denies headache(s), Den
[2021-06-30 15:30] VITALS: BP 123/74; PULSE 85; RESP 16; TEMP 36.7; O2SAT 96
--- NOTE | 2021-06-30 18:15 | PC.NURSE ---
Patient is non tele and on room air. Patient up to chair with PT. Mendoza catheter D/C'd. Patient has voided, bedside commode with assist times two and walker. Plan of care is to discharge home on 07/01. Bed in lowest position and phone and call light in reach.
[2021-06-30 20:00] VITALS: BP 134/85; PULSE 75; RESP 16; TEMP 36.9; O2SAT 95
[2021-07-01] VITALS: BP 129/77; PULSE 80; RESP 16; TEMP 36.6; O2SAT 96
[2021-07-01 04:00] VITALS: BP 129/80; PULSE 77; RESP 17; TEMP 36.6; O2SAT 97
[2021-07-01 04:35] VITALS: BMI 24.4
--- NOTE | 2021-07-01 06:41 | HMH.ORTHPN ---
Subjective Date: 07/01/21 Time: 06:41 Principal diagnosis: right hip fracture; s/p total hip arthroplasty Interval history: Pain well controlled. She has been up with physical therapy. PN: Obj Ex Vital signs: Temp Pulse Resp BP Pulse Ox 98 F 77 17 129/80 97 07/01/21 04:00 07/01/21 04:00 07/01/21 04:00 07/01/21 04:00 07/01/21 04:00 - Constitutional no acute distress - Routine Respiratory Exam Absent: accessory muscle use, respiratory distress - Detailed Lower Extremity Exam Hip: Left wound hip (Right lower extremity dressing clean, dry, intact, lightly symmetric, distally neurovascular intact.) - Urinary Catheter Management Mendoza Cath placed during this visit: no Urethral indwelling: Yes Progress Note: A&P (1) Closed right hip fracture Status: Acute Assessment and plan: 70-year-old female with right total hip arthroplasty by Dr. Fernandez. PT/OT. DVT prophylaxis. Discharge planning. Will follow. (2) Anxiety Status: Chronic (3) Hyperlipidemia Status: Chronic (4) Hypertension Status: Chronic (5) Insomnia Status: Chronic
[2021-07-01 07:15] LABS: Basophils # 0.1 K/mm3 (0-0.2); Basophils % 0.7 % (0.1-2.0); Eosinophils # 0.1 K/mm3 (0.0-0.4); Hematocrit 33.9 % (37.0-47.0); Lymphocytes # 1.5 K/mm3 (0.7-4.5); Lymphocytes % 14.6 % (10-50); Mean Corpuscular HGB Conc 32.4 g/dL (31.8-35.4); Mean Corpuscular Hemoglobin 29.6 pg (27.0-31.2); Mean Corpuscular Volume 91.3 fl (81-99); Mean Platelet Volume 8.2 fl (7.4-10.4); Monocytes # 0.7 K/mm3 (0.1-1.0); Monocytes % 6.8 % (1.7-9.3); Neutrophils # 8.1 K/mm3 (1.8-7.8); Neutrophils % 76.9 % (37.0-80.0); Platelet Count 284 K/mm3 (142-424); Red Blood Count 3.71 M/mm3 (4.20-5.40); Red Cell Distribution Width 13.1 % (11.5-17.5); White Blood Count 10.5 K/mm3 (4.8-10.8)
[2021-07-01 07:20] LABS: Anion Gap 7.5 mEq/L (5-15); Calcium 8.7 mg/dl (8.4-10.2); Carbon Dioxide 33 mmol/L (22.0-30.0); Chloride 94 mmol/L (98-107); Creatinine Clearance Estimated 55 mL/min (50-200); Estimated Glomerular Filt Rate 158 ml/min (>60); GFR (African American) 191 ML/MIN (>60); Glucose 95 mg/dl (74-100); Potassium 3.5 mmoL/L (3.5-5.1); Sodium 131 mmol/L (136-145)
[2021-07-01 07:27] LABS: Blood Urea Nitrogen < 2 mg/dl (7-17)
[2021-07-01 08:00] VITALS: BP 153/82; PULSE 104; RESP 18; TEMP 37.1; O2SAT 90
--- NOTE | 2021-07-01 09:04 | HMH.ACPN2 ---
Internal Medicine - PN: Subj *Date: 07/01/21 *Time: 09:04 Interval history: doing better but still weak - e coli noted - will d/c in am Exam Vital signs and Labs for Last 24 Hours: Temp Pulse Resp BP Pulse Ox 98 F 77 17 129/80 97 07/01/21 04:00 07/01/21 04:00 07/01/21 04:00 07/01/21 04:00 07/01/21 04:00 Laboratory Results - last 24 hr 07/01/21 06:45: WBC 10.5, RBC 3.71 L, Hgb 11.0 L, Hct 33.9 L, MCV 91.3, MCH 29.6, MCHC 32.4, RDW 13.1, Plt Count 284, MPV 8.2, Neut % (Auto) 76.9, Lymph % (Auto) 14.6, [place] % (Auto) 6.8, Eos % (Auto) 1.0, Baso % (Auto) 0.7, Neut # (Auto) 8.1 H, Lymph # (Auto) 1.5, [place] # (Auto) 0.7, Eos # (Auto) 0.1, Baso # (Auto) 0.1 07/01/21 06:45: Sodium 131 L, Potassium 3.5, Chloride 94 L, Carbon Dioxide 33 H, Anion Gap 7.5, BUN < 2 L, Creatinine 0.40 L, Estimated Creat Clear 55, Estimated GFR 158, Est GFR ( Amer) 191, Glucose 95, Calcium 8.7 I & O for Last 24 hours: Intake & Output 06/28/21 06/29/21 06/30/21 07/01/21 11:59 11:59 11:59 11:59 Intake Total 1540 / 1540 240 / 240 Output Total 1500 / 1500 1250 / 1250 950 / 950 Balance -1500 / -1500 290 / 290 -710 / -710 Weight 145 lb 4.8 oz 145 lb 4.554 oz 145 lb Microbiology Reports for the Last 24 Hours: Microbiology 06/28/21 19:50 Urine,Catheterized Urine Culture - Final Escherichia coli - Constitutional no acute distress - *Routine HEENT Exam Head: Present: normocephalic Eye: Present: EOMI, PERRL ENT: Present: mucous membranes dry - *Routine Neck Exam Absent: JVD - *Routine Respiratory Exam Present: CTA bilaterally - *Routine Cardiovascular Exam Present: RRR - *Routine Abdominal Exam Present: soft - *Routine Extremities Exam Absent: calf tenderness - *Routine Skin Exam Present: intact - *Routine Neurological Exam Present: alert, CN II-XII intact - Routine Psychiatric Exam Present: cooperative Assessment and Plan (1) Closed right hip fracture Status: Acute Qualifiers: Encounter type: initial encounter Qualified Code(s): S72.001A - Fracture of unspecified part of neck of right femur, initial encounter for closed fracture Category: Medical Code(s): S72.001A - Fracture of unspecified part of neck of right femur, initial encounter for closed fracture (2) Anxiety Status: Chronic Category: Medical Code(s): F41.9 - Anxiety disorder, unspecified (3) Hyperlipidemia Status: Chronic Qualifiers: Hyperlipidemia type: unspecified Qualified Code(s): E78.5 - Hyperlipidemia, unspecified Category: Medical Code(s): E78.5 - Hyperlipidemia, unspecified (4) Hypertension Status: Chronic Qualifiers: Hypertension type: essential hypertension Category: Medical Code(s): I10 - Essential (primary) hypertension (5) Insomnia Status: Chronic Qualifiers: Insomnia type: primary Qualified Code(s): F51.01 - Primary insomnia Category: Medical Code(s): G47.00 - Insomnia, unspecified (6) Hyponatremia Status: Acute Category: Medical Code(s): E87.1 - Hypo-osmolality and hyponatremia (7) E. coli UTI (urinary tract infection) Status: Acute Category: Medical Code(s): N39.0 - Urinary tract infection, site not specified; B96.20 - Unspecified Escherichia coli [E. coli] as the cause of diseases classified elsewhere
[2021-07-01 09:27] LABS: T4 (Thyroxine) 6.1 ug/dl (5.53-11.0)
[2021-07-01 09:41] LABS: Thyroid Stimulating Hormone 7.46 uIU/mL (0.465-4.68)
[2021-07-01 16:00] VITALS: BP 130/88; PULSE 87; RESP 18; TEMP 36.4; O2SAT 94
[2021-07-01 19:59] VITALS: BP 165/98; PULSE 97; RESP 20; TEMP 36.3; O2SAT 90
[2021-07-02 04:00] VITALS: BP 144/92; PULSE 82; RESP 17; TEMP 36.8; O2SAT 97
[2021-07-02 05:00] VITALS: BMI 26.9
[2021-07-02 06:33] LABS: Anion Gap 6.9 mEq/L (5-15); Calcium 8.4 mg/dl (8.4-10.2); Carbon Dioxide 33 mmol/L (22.0-30.0); Chloride 93 mmol/L (98-107); Creatinine Clearance Estimated 61 mL/min (50-200); Estimated Glomerular Filt Rate 158 ml/min (>60); GFR (African American) 191 ML/MIN (>60); Glucose 95 mg/dl (74-100); Sodium 130 mmol/L (136-145)
[2021-07-02 06:47] LABS: Basophils # 0.1 K/mm3 (0-0.2); Basophils % 0.7 % (0.1-2.0); Eosinophils # 0.1 K/mm3 (0.0-0.4); Eosinophils % 1.5 % (0.1-12.0); Hematocrit 32.3 % (37.0-47.0); Hemoglobin 10.1 g/dL (12.2-16.2); Lymphocytes # 1.2 K/mm3 (0.7-4.5); Lymphocytes % 14.7 % (10-50); Mean Corpuscular HGB Conc 31.4 g/dL (31.8-35.4); Mean Corpuscular Hemoglobin 28.8 pg (27.0-31.2); Mean Corpuscular Volume 91.5 fl (81-99); Monocytes # 0.6 K/mm3 (0.1-1.0); Monocytes % 7.4 % (1.7-9.3); Neutrophils # 6.4 K/mm3 (1.8-7.8); Neutrophils % 75.7 % (37.0-80.0); Platelet Count 312 K/mm3 (142-424); Red Blood Count 3.53 M/mm3 (4.20-5.40); Red Cell Distribution Width 13.4 % (11.5-17.5); White Blood Count 8.4 K/mm3 (4.8-10.8)
[2021-07-02 07:35] LABS: Blood Urea Nitrogen < 2 mg/dl (7-17); Potassium 2.9 mmoL/L (3.5-5.1)
--- NOTE | 2021-07-02 07:45 | PC.NURSE ---
notified md of critical potassium
[2021-07-02 07:51] VITALS: BP 122/68; PULSE 95; RESP 16; TEMP 36.8; O2SAT 96
--- NOTE | 2021-07-02 07:59 | HMH.ORTHPN ---
Subjective Date: 07/02/21 Time: 07:59 Principal diagnosis: right hip fracture; s/p total hip arthroplasty Interval history: Has been working well with physical therapy. She is motivated to go home. PN: Obj Ex Vital signs: Temp Pulse Resp BP Pulse Ox 98.3 F 95 H 16 122/68 96 07/02/21 07:51 07/02/21 07:51 07/02/21 07:51 07/02/21 07:51 07/02/21 07:51 - Constitutional no acute distress - Routine Respiratory Exam Absent: accessory muscle use, respiratory distress - Routine Cardiovascular Exam Present: RRR - Detailed Lower Extremity Exam Hip: Right wound hip (Right lower extremity dressing clean, dry, intact. Leg lengths symmetric. Distally neurovascularly intact.) - Urinary Catheter Management Mendoza Cath placed during this visit: no Urethral indwelling: Yes Progress Note: A&P (1) Closed right hip fracture Status: Acute Assessment and plan: 70-year-old female status post total hip arthroplasty following right femoral neck fracture. She is progressing well with physical therapy, is motivated to return home. Okay for discharge pending progress from orthopedic perspective. Plan to follow-up in [address] Fernandez for wound check and x-rays. (2) Anxiety Status: Chronic (3) Hyperlipidemia Status: Chronic (4) Hypertension Status: Chronic (5) Insomnia Status: Chronic (6) Hyponatremia Status: Acute (7) E. coli UTI (urinary tract infection) Status: Acute
--- NOTE | 2021-07-02 08:55 | HMH.DCSUM ---
General - General Admission date:: 06/28/21 Discharge date: 07/02/21 HPI HPI: 70 YOF presented to the [facility] ED per EMS for report of R Hip pain after falling. She states she was on front porch and her sock caught on a nail causing her to trip and fall. She reports crawling to edge of porch to alert her neighbors for help. She denies hitting head or LOC 06/28/21 R Hip XR: FINDINGS: Bones/joints: There is a minimally displaced right femoral neck fracture. Mild impaction. Soft tissues: Unremarkable. IMPRESSION: Mildly impacted right femoral neck fracture Electronically signed by Ar Scott MD 06/28/21 CXR: FINDINGS: Lungs: Unremarkable. No consolidation. Pleural spaces: Unremarkable. No pleural effusion. No pneumothorax. Heart/Mediastinum: Unremarkable. No cardiomegaly. Bones/joints: Unremarkable. IMPRESSION: No acute findings. Electronically signed by Ar Scott MD Ortho was consulted Hospital Course Hospital Course: pt was taken to surg - Closed, displaced femoral neck fracture, right hip Post-op Diagnosis:: Same Procedure performed:: Total hip arthroplasty, right hip Surgeon:: Yan Fernandez MD TRIMMING CUTTER:: Avery Dykes Anesthesia: spinal Estimated blood loss (mL): 500 Clinical Note:: Patient is a 70-year-old female who sustained a displaced intra-capsular fracture neck of right femur following a mechanical fall. Patient usually walks independently without any walking aids.? There is no history of any hip pain or problems prior to the injury.? She denies loss of consciousness, chest pain and shortness of breath.? Patient has history of hypertension, hyperlipidemia and anxiety. Given the fracture pattern, her activity level and relatively younger age, following a detailed discussion, patient opted for a total hip arthroplasty to the right hip.? The surgery is indicated to relieve pain and restore function. The operation is clinically indicated and is the standard of care for this type of fracture. Please refer to my consult note for full details. Operative findings:: Displaced sub capital femoral neck fracture of the right hip as noted on the preoperative hip x-rays.? No significant degenerative changes were noted in the hip joint.? The acetabular and proximal femur bone quality is soft/osteoporotic. Operative note:: see report pt has did well with therapy and tolerated meds and diet - pt was noted to have uti and was placed on abx per culture results - pt will follow up with pcp and ortho Objective Vital signs: Temp Pulse Resp BP Pulse Ox 98.3 F 95 H 16 122/68 96 07/02/21 07:51 07/02/21 07:51 07/02/21 07:51 07/02/21 07:51 07/02/21 07:51 no acute distress - *Routine HEENT Exam Head: Present: normocephalic Eye: Present: EOMI, PERRL ENT: Present: mucous membranes dry - *Routine Neck Exam Absent: JVD - *Routine Respiratory Exam Present: CTA bilaterally - *Routine Cardiovascular Exam Present: RRR, murmur. Absent: rubs, S3 - *Routine Abdominal Exam Present: soft - *Routine Extremities Exam Comments: pt with stable ortho exam - *Routine Skin Exam Present: intact - *Routine Neurological Exam Present: alert, oriented X3, CN II-XII intact. Absent: motor deficit - Routine Psychiatric Exam Present: normal affect Results Labs on day of discharge: Labs from last 24 hours 07/02/21 07/02/21 06:00 06:00 WBC 8.4 RBC 3.53 L Hgb 10.1 L Hct 32.3 L MCV 91.5 MCH 28.8 MCHC 31.4 L RDW 13.4 Plt Count 312 MPV 8.0 Neut % (Auto) 75.7 Lymph % (Auto) 14.7 [place] % (Auto) 7.4 Eos % (Auto) 1.5 Baso % (Auto) 0.7 Neut # (Auto) 6.4 Lymph # (Auto) 1.2 [place] # (Auto) 0.6 Eos # (Auto) 0.1 Baso # (Auto) 0.1 Sodium 130 L Potassium 2.9 L* Chloride 93 L Carbon Dioxide 33 H Anion Gap 6.9 BUN < 2 L Creatinine 0.40 L Estimated Creat Clear 61 Estimated GFR 158 Est GFR (
[2021-07-02 11:07] VITALS: BP 113/77; PULSE 81; RESP 17; TEMP 36.7; O2SAT 96
== END 2021-07-02 12:45 | disposition home or self-care (01) ==
LOC: ER 19:42 → 2ND 20:10
PROVIDERS: Nurse Practitioner Family; Orthopaedic Surgery; Admitting Provider Internal Medicine Adolescent Medicine; Emergency Provider Emergency Medicine; PCP Physician Assistant; Visit Provider Emergency Medicine
PROC: (CPT 27130; principal; 2021-06-29 12:45)
DX: S72.011A Unspecified intracapsular fracture of right femur, initial encounter for closed fracture (principal); W01.0XXA Fall on same level from slipping, tripping and stumbling without subsequent striking against object, initial encounter; Y92.018 Other place in single-family (private) house as the place of occurrence of the external cause; N39.0 Urinary tract infection, site not specified; B96.20 Unspecified Escherichia coli [E. coli] as the cause of diseases classified elsewhere; I10 Essential (primary) hypertension; F17.210 Nicotine dependence, cigarettes, uncomplicated; E78.5 Hyperlipidemia, unspecified; E87.6 Hypokalemia; Z20.822 Contact with and (suspected) exposure to COVID-19
CPT/HCPCS: 27130; G0378; 36415; 71045; 73502; 76000; 80048; 80053; 81001; 84436; 84443; 85025; 86850; 87086; 87088; 87186; 96374; 96375; 97162; 97165; 97530; 99284; C1713; C1776; C9803; J2405; J2704; J3370; U0003; U0005

== ENCOUNTER → 2021-07-12 08:07 | Outpatient (CLI) | payer MEDICARE, SELFPAY ==
--- NOTE | 2021-07-12 08:14 | XR_ITS ---
PROCEDURE: XR HIP RT 2-3V W/PELVIS CLINICAL INDICATION: sp RT JENNIFER, sx 06/29/21 The COMPARISON: CR XR HIP RT 2-3V W/PELVIS from 06/29/2021 FINDINGS: Status post total right hip prosthesis placement with good alignment. For acetabular cup screws are present the most lateral of which lies outside the ilium. This is not significantly changed. Faint increased density present in the soft tissues in the hip laterally consistent with dissolving antibiotic beads. There is a transverse lucency involving the proximal to midshaft of the femur cortex which is not significantly changed. An incomplete nondisplaced fracture is considered. Continued follow-up suggested. IMPRESSION: Status post total right hip replacement with good alignment as described above. Possible nondisplaced fracture of the proximal to midshaft of the femur laterally 4 cm distal to the distal stem of the femoral component not significantly changed. Dictated by: Lul Baugh MD 07/12/2021 08:34 Lul Baugh MD in [place] 07/12/2021 08:34
--- NOTE | 2021-07-12 09:57 | CT_ITS ---
PROCEDURE: CT HIP RT WO CON CLINICAL HISTORY: evaluate for possible fx, COMPARISON: CT ABDPELW/O CT ABD PELVIS W/O CONTRAST from 07/23/2016 CR XR HIP RT 2-3V W/PELVIS from 06/28/2021 XA XR HIP RT 2-3V W/PELVIS from 06/29/2021 CR XR HIP RT 2-3V W/PELVIS from 07/12/2021 TECHNIQUE: Axial images obtained with sagittal and coronal reformats. All CT scans at the facility use one or more dose reduction, viz: automated exposure control, ma/kV adjustment per patient size (including targeted exams where dose is matched to indication, i.e. head), or iterative reconstruction technique. FINDINGS: Right total hip prosthesis is in place with good alignment. For acetabular cup screws are present the most lateral of which extends through the lateral aspect of the acetabulum into the soft tissues of the hip lateral to the ilium. The femoral stem has an unremarkable appearance. 3.4 cm distal to the tip of the femoral stem there is a transverse lucency involving the lateral aspect of the femoral cortex as seen on the radiograph. This is not felt to represent a fracture but appears to represent cortical extension of a defect created into the femur and is filled with bone cement. This defect does extend through the cortex but not beyond the cortex. There are residual dissolving antibiotic beads within the soft tissues laterally. No acute fracture apparent. There is some heterotopic ossification along the dorsal aspect of the proximal femur versus residual from antibiotic beads. 2 cm soft tissue density is present along the lateral aspect of the hip within the subcutaneous tissues and could represent a resolving hematoma IMPRESSION: 1. No acute fracture apparent. 2. Radiographic abnormality is related to lateral extension of the intramedullary ranula defect filled with bone cement. This extends to but not past the lateral cortex of the femur. 3. Status post total hip replacement. Lateral acetabular cup screw extends through the lateral cortex of the acetabulum within the soft tissues lateral to the ilium. Dictated by: Lul Baugh MD 07/12/2021 11:02 Lul Baugh MD in [place] 07/12/2021 11:02
== END ==
PROVIDERS: PCP Physician Assistant; Visit Provider Orthopaedic Surgery
DX: Z09 Encounter for follow-up examination after completed treatment for conditions other than malignant neoplasm (principal); M25.551 Pain in right hip; Z96.641 Presence of right artificial hip joint
CPT/HCPCS: 73502; 73700

== ENCOUNTER 2021-07-23 08:48 | Emergency (ER) | payer MEDICARE, SELFPAY ==
[2021-07-23 08:49] VITALS: BP 99/68; PULSE 81; RESP 18; TEMP 36.4; O2SAT 95; BMI 24.7
--- NOTE | 2021-07-23 08:49 | ECG_ITS ---
APPROVED REPORT Exam: Resting ECG HR:78 bpm ECG Measurements Heart Rate 78 AXES VA 216 P 55 QRSd 72 QRS -21 QT 406 T 61 QTc 462 Conclusion Sinus rhythm with 1st degree AV block Low voltage QRS Borderline ECG Electronically signed by : Wade Milan MD 07/24/2021 14:24:10
--- NOTE | 2021-07-23 08:53 | XR_ITS ---
PROCEDURE INFORMATION: Exam: XR Chest Exam date and time: 07/23/2021 8:53 AM Age: 70 years old Clinical indication: Other: Syncope TECHNIQUE: Imaging protocol: XR of the chest. Views: 1 view. COMPARISON: CR XR CHEST AP 06/28/2021 7:16 PM FINDINGS: Lungs: Emphysematous change and mild interstitial prominence. Pleural spaces: No pleural effusion. Heart/Mediastinum: No cardiomegaly. Bones/joints: Osteopenia and degenerative change. IMPRESSION: Emphysematous change and mild interstitial prominence.
--- NOTE | 2021-07-23 08:53 | HMH.EDGENADL ---
ED Disposition Clinical Impression: Constipation Qualifiers: Constipation type: drug induced constipation Qualified Code(s): K59.03 - Drug induced constipation Disposition: Home, Self-Care Condition on Discharge: Good Referrals: Provider,Referral, [Primary Care Provider] - 3 days Time of Disposition: 09:42 - Critical Care Critical Care Time: No Attestation: On , the high probability of a clinically significant, sudden or life threatening deterioration of the following system(s) required my full and direct attention, intervention and personal management. The time I documented below is in addition to time spent performing reported procedures but includes the following listed in this critical care notation. Medical Decision Making - Medical Records Medical records reviewed: Yes: I reviewed the patient's medical records. - Durga Inquiry Pt receiving controlled substance: No Vital Signs: 07/23/21 08:49 07/23/21 09:01 Temperature 97.6 F Temperature Source Oral Pulse Rate 78 Pulse Rate [Left Radial] 81 Respiratory Rate 18 Blood Pressure 120/71 Blood Pressure [Right Arm] 99/68 L Blood Pressure Mean 87 Blood Pressure Mean [Right Arm] 78 Blood Pressure Source [Right Arm] Automatic Cuff Blood Pressure Position [Right Arm] Sitting 02 Sat by Pulse Oximetry 95 96 Oxygen Delivery Method Room Air - Lab Data Lab results reviewed: Yes: I reviewed the patient's lab results. Lab Results 07/23/21 08:55: WBC 11.8 H, RBC 4.44, Hgb 12.6, Hct 39.0, MCV 87.9, MCH 28.5, MCHC 32.4, RDW 12.8, Plt Count 735 H, MPV 8.3, Neut % (Auto) 77.4, Lymph % (Auto) 13.4, [place] % (Auto) 5.6, Eos % (Auto) 2.8, Baso % (Auto) 0.7, Neut # (Auto) 9.1 H, Lymph # (Auto) 1.6, [place] # (Auto) 0.7, Eos # (Auto) 0.3, Baso # (Auto) 0.1 07/23/21 08:55: Sodium 127 L, Potassium 4.1, Chloride 93 L, Carbon Dioxide 26, Anion Gap 12.1, BUN 3 L, Creatinine 0.70, Estimated Creat Clear 53, Estimated GFR 83, Est GFR ( Amer) 100, Glucose 147 H, Calcium 9.0, Total Bilirubin 0.5, AST 35, ALT 14, Alkaline Phosphatase 167 H, Troponin I < 0.01, Total Protein 7.2, Albumin 3.9, Globulin 3.3 H, Albumin/Globulin Ratio 1.2 Result diagrams: 07/23/21 08:55 07/23/21 08:55 Orders (Tests/Meds): ED MEDICATIONS Generic Name Dose Route Start Last Admin Trade Name Freq PRN Reason Stop Dose Admin Lactated Ringer's 1,000 mls @ 999 mls/hr 07/23/21 09:15 07/23/21 09:42 Lactated Ringer's 1000 Ml Bag IV 07/23/21 10:15 999 mls/hr .Q1H1M CAROL Administration Discontinued Medications Generic Name Dose Route Start Last Admin Trade Name Freq PRN Reason Stop Dose Admin Mineral Oil 133 ml 07/23/21 09:30 07/23/21 09:57 Mineral Oil Enema 133ml RC 07/23/21 09:31 133 ml ONCE ONE Administration - ECG Data Tracing #1 I reviewed this ECG and interpreted as documented below: Sinus rhythm with first-degree block, [address] elevation or depression. No ectopy. ECG initial impression date: 07/23/21 ECG initial impression time: 08:51 Medical Decision Narrative: 70yo F evaluated for near syncope. Patient no acute distress on initial evaluation. Her clinical picture is most consistent with constipation. Laboratory studies collected and are unremarkable except for elevated platelets. EKG is reviewed as above and unremarkable. Patient provided a Fleet enema in the emergency department. Encouraged to use daily medication for normal bowel function. Follow-up PCP 1 to 2 days. General Adult HPI - General Stated complaint: syncope Time Seen by Provider: 07/23/21 08:53 Mode of Arrival: EMS - History of Present Illness HPI narrative: 70yo F presents the emergency department secondary to near syncope. Patient reports she was attempting to have a bowel movement when she became lightheaded. Denies any chest pain, shortness of breath, diaphoresis. She denies any loss of consciousness. Denies any fall or trauma. No change in her vision.
[2021-07-23 09:01] VITALS: BP 120/71; PULSE 78; O2SAT 96
[2021-07-23 09:07] LABS: Chloride 93 mmol/L (98-107); Potassium 4.1 mmoL/L (3.5-5.1); Sodium 127 mmol/L (136-145)
[2021-07-23 09:09] LABS: Blood Urea Nitrogen 3 mg/dl (7-17); Creatinine Clearance Estimated 53 mL/min (50-200); Estimated Glomerular Filt Rate 83 ml/min (>60); GFR (African American) 100 ML/MIN (>60)
[2021-07-23 09:10] LABS: Alanine Aminotransferase 14 U/L (12-78); Albumin Level 3.9 g/dl (3.5-5.0); Albumin/Globulin Ratio 1.2 (1.1-1.8); Alkaline Phosphatase 167 U/L (38-126); Anion Gap 12.1 mEq/L (5-15); Aspartate Amino Transferase 35 U/L (14-36); Bilirubin,Total 0.5 mg/dl (0.2-1.3); Carbon Dioxide 26 mmol/L (22.0-30.0); Globulin 3.3 g/dL (1.3-3.2); Glucose 147 mg/dl (74-100); Total Protein,Serum 7.2 g/dl (6.3-8.2)
[2021-07-23 09:15] LABS: Basophils # 0.1 K/mm3 (0-0.2); Basophils % 0.7 % (0.1-2.0); Eosinophils # 0.3 K/mm3 (0.0-0.4); Eosinophils % 2.8 % (0.1-12.0); Hemoglobin 12.6 g/dL (12.2-16.2); Lymphocytes # 1.6 K/mm3 (0.7-4.5); Lymphocytes % 13.4 % (10-50); Mean Corpuscular HGB Conc 32.4 g/dL (31.8-35.4); Mean Corpuscular Hemoglobin 28.5 pg (27.0-31.2); Mean Corpuscular Volume 87.9 fl (81-99); Mean Platelet Volume 8.3 fl (7.4-10.4); Monocytes # 0.7 K/mm3 (0.1-1.0); Monocytes % 5.6 % (1.7-9.3); Neutrophils # 9.1 K/mm3 (1.8-7.8); Neutrophils % 77.4 % (37.0-80.0); Red Blood Count 4.44 M/mm3 (4.20-5.40); Red Cell Distribution Width 12.8 % (11.5-17.5); White Blood Count 11.8 K/mm3 (4.8-10.8)
[2021-07-23 09:26] LABS: Troponin I < 0.01 ng/ml (0.00-0.034)
[2021-07-23 09:29] LABS: Platelet Count 735 K/mm3 (142-424)
[2021-07-23 09:30] VITALS: BP 101/83; PULSE 82; O2SAT 97
--- NOTE | 2021-07-23 10:31 | PC.NURSE ---
pt had a successful bm
[2021-07-23 10:33] VITALS: BP 101/83; PULSE 82; RESP 18; TEMP 36.4; O2SAT 95
== END 2021-07-23 10:49 | disposition home or self-care (01) ==
PROVIDERS: Emergency Provider Family Medicine
DX: K59.03 Drug induced constipation (principal); E78.5 Hyperlipidemia, unspecified; I10 Essential (primary) hypertension; Z96.641 Presence of right artificial hip joint; F17.210 Nicotine dependence, cigarettes, uncomplicated
CPT/HCPCS: 71045; 80053; 84484; 85025; 93005; 96365; 99284

== ENCOUNTER → 2021-09-25 16:00 | Outpatient (CLI) | payer MEDICARE, SELFPAY ==
[2021-09-25 15:10] LABS: Amphetamine/Metha Screen,Urine Negative ng/ml (<1000)
[2021-09-25 15:11] LABS: Barbiturates Screen,Urine Negative ng/ml (<200); Benzodiazepines Screen,Urine Negative ng/ml (<200)
[2021-09-25 15:12] LABS: Cannabinoid Screen,Urine Negative ng/ml (<50); Cocaine Screen,Urine Negative ng/ml (<300)
[2021-09-25 15:13] LABS: Methadone Screen,Urine Negative ng/ml (<300)
[2021-09-25 15:14] LABS: Opiate Screen,Urine Negative ng/ml (<300); Phencyclidine Screen,Urine Negative ng/ml (<25)
== END ==
PROVIDERS: Visit Provider Physician Assistant
DX: Z79.899 Other long term (current) drug therapy (principal)
CPT/HCPCS: 80305

== ENCOUNTER → 2021-12-06 08:25 | Outpatient (CLI) | payer MEDICARE, SELFPAY ==
--- NOTE | 2021-12-06 08:25 | XR_ITS ---
FINAL REPORT TECHNIQUE: Bone densitometry calculations of the lumbar spine for, right forearm and left hip were obtained. CLINICAL HISTORY: . post menopausal FINDINGS: DEXA BONE DENSITY AXIAL SKELETON Using L1-4, the bone mineral density of the spine is a 0.694 g/cm2, corresponding to T-score of -3.2. Using the left hip, the bone mineral density of the femoral neck is 0.494 g/cm2, corresponding to a T-score of -3.2. Using the right forearm, the bone mineral density of the distal 1/3 is 0.423 g/cm2, corresponding to a T-score of -4.5. NOTE: T-score: Standard deviation compared with peak bone mass of young adult mean. *Following the recommendations of the International Society of Bone Densitometry, classification of hip BMD is based on the lower of two T-scores; total hip or femoral neck. IMPRESSION: Osteoporosis: Lowest T-score is at or below -2.5. This patient's T-score meets the World Health Organization criteria for osteoporosis. Reviewed, Interpreted and Dictated by Carlo Dang MD Transcribed by Es Franklin Authenticated by Carlo Dang MD on 12/06/2021 10:12:10 AM [facility]
== END ==
PROVIDERS: PCP Physician Assistant; Visit Provider Physician Assistant
DX: Z78.0 Asymptomatic menopausal state (principal)
CPT/HCPCS: 77080

== ENCOUNTER 2024-01-08 15:08 | Emergency (ER) | payer MEDICARE, SELFPAY ==
--- NOTE | 2024-01-08 15:08 | PC.NURSE ---
Pt arrived to [facility] ED @ 1508 EMS states pt collapsed and went unresponsive at home @ 1425. EMS arrived on scene @ 1435. ACLS was started per EMS. En route to ED pt was given 4mg epi. Pt was intubated with a 7.5 ett, 23 @ teeth. On arrival to [facility] @ 1508: Pulse check @ 1510; asystole; cpr resumed 1mg epi given @ 1510 pulse check @ 1512; cardiac standstill per MD via u/s; compressions resumed 1mg epi given @ 1513 pulse check @ 1514; asystole; no cardiac activity per u/s TOD per MD: 1515
[2024-01-08 15:20] VITALS: BMI 23.0
[2024-01-08] MEDS: EPINEPHrine 0.1 MG/ML 10ML SYRINGE (CRASH CART) 1 MG IV ×2 (15:22)
--- NOTE | 2024-01-08 15:44 | ED_ITS ---
Discharge Plan Disposition Patient Disposition: Date/Time: 01/08/24 15:15 Clinical Impressions Clinical Impression: Cardiac arrest, Acute hypoxemic respiratory failure, Syncope and collapse, Asystole Discharge ED Provider: Helen Martin General Adult HPI General Stated complaint: CODE 500 Time Seen by Provider: 01/08/24 15:21 History of Present Illness HPI narrative: This patient is a 73-year-old female with a history of anxiety, hypertension, and hyperlipidemia presenting to the emergency department for evaluation with concern for cardiac arrest. History is obtained with the help of EMS as well as the patient's son who arrived later. EMS noted that the patient was at home with her son when she reportedly had a syncopal episode and then called to him for help. He had helped her to the bathroom, at which point she became weak on the toilet and then subsequently became unresponsive and lost pulse. Her son initiated CPR at home. Patient started coding approximately 1425. EMS was called to the scene, and then EMS initiated ACLS. Patient had asystole on the monitor the entire time and was given epinephrine x 4. She was intubated and they confirmed ET tube placement with auscultation. Patient remained pulseless and in asystole upon arrival. Patient had been down for approximately 40 to 45 minutes at time of arrival. Son reports that the patient has been in her usual state of health this morning. This afternoon he heard the dog barking, at which point he came and found her on the floor. She woke up and the last coherent thing that she had said was that she needed to go to the bathroom. He helped her to the bathroom, at which point she became unresponsive. He states that he lowered her to the ground and s tarted doing chest compressions on her and giving her breaths until EMS got there. Related Data Previous Rx's Medication Instructions Recorded calcium carbonate 600 mg-vitamin 1 cap PO BID #180 caps 09/25/21 D3 12.5 mcg (500 unit) capsule (Calcium 600 with Vitamin D3) alendronate 70 mg tablet See Rx Instructions .Route 01/01/23 .COMPLEX #14 tabs atorvastatin 20 mg tablet See Rx Instructions .Route 01/01/23 .COMPLEX #90 tabs metoprolol succinate 50 mg See Rx Instructions .Route 01/01/23 tablet,extended release 24 hr .COMPLEX #90 tabs lisinopril 20 mg tablet See Rx Instructions .Route 01/03/23 .COMPLEX #180 tabs amlodipine 2.5 mg tablet See Rx Instructions .Route 06/28/23 .COMPLEX #90 tabs lorazepam 0.5 mg tablet 0.5 mg PO TID PRN anxiety #90 tabs 08/29/23 venlafaxine 75 mg capsule,extended 75 mg PO DAILY #30 caps 08/29/23 release 24 hr (Effexor XR) Allergies Allergy/AdvReac Type Severity Reaction Status Date / Time acetaminophen [From NYQUIL] Allergy Unknown SHAKY/JITTE Verified 07/01/23 10:37 RY dextromethorphan Allergy Unknown SHAKY/JITTE Verified 07/01/23 10:37 [From NYQUIL] RY diphenhydramine Allergy Unknown I-RASH Verified 07/01/23 10:37 [From BENADRYL] doxylamine [From NYQUIL] Allergy Unknown SHAKY/JITTE Verified 07/01/23 10:37 RY pseudoephedrine [From NYQUIL] Allergy Unknown SHAKY/JITTE Verified 07/01/23 10:37 RY PFSH [facility] Disclaimer: The information contained in this section may have been updated after the patient was seen, as this information can be updated by other users. Medical History Osteoporosis Closed right hip fracture Overweight (BMI 25.0-29.9) Hyponatremia Insomnia Urinary incontinence Hyperlipidemia Hypertension Anxiety Social History Smoking Status: Current every day smoker tobacco type: cigarettes packs per day: 1 alcohol intake: former substance use type: denies use current occupational status: retired Travel in the last 8 weeks: None ROS Obtained: Yes unobtainable due to mental status and Yes unobtainable due to endotracheal tube Physical Exam General General appearance: other Comment: Unresponsive, ET tube in place, CPR in progress with asystole on clinical research monitor during first pulse check Head Head exam: atraumatic and normocephalic Eye Eye exam: Present other (Pupils fixed and dilated) ENT ENT exam: Present other (ET tube in place with bag valve mask ventilation ongoing) Neck Neck exam: Present normal inspection Chest Chest inspection: Present other (Compressions in progress) Respiratory Respiratory exam: Present other (No spontaneous respirations. Respirations assisted with BVM) Cardiovascular Cardiovascular exam: Present other (Asystole with absent pulses) Abdominal Exam Abdominal exam: Present soft; Absent distention Extremities Exam Extremities exam: Present normal inspection Back Exam Back exam: Present normal inspection Neurological Exam Neurological exam: Present other (GCS 3 T); Absent alert Skin Skin exam: Present pallor, mottled and other (cold); Absent warm Medical Decision Making Durga Inquiry Pt receiving controlled substance: No Orders (Tests/Meds): ED MEDICATIONS Discontinued Medications Generic Name Dose Route Start Last Admin Trade Name Yangq PRN Reason Stop Dose Admin Epinephrine HCl 1 mg 01/08/24 15:10 01/08/24 15:22 Epinephrine 0.1 Mg/Ml 10ml Syringe (Crash Cart) IV 01/08/24 15:11 1 mg ONCE ONE Administration Epinephrine HCl 1 mg 01/08/24 15:13 01/08/24 15:22 Epinephrine 0.1 Mg/Ml 10ml Syringe (Crash Cart) IV 01/08/24 15:14 1 mg ONCE ONE Administration Medical Decision Narrative: In summary, this patient is a 73-year-old female presenting to the emergency department as a CODE BLUE. Differential diagnoses include CVA, cardiac dysrhythmia, VT, PE. CPR ongoing upon arrival. Patient had been down for approximately 45 minutes upon arrival with asystole noted by EMS the entire time. They had given epinephrine x 4 with no improvement. Patient was intubated prior to arrival. Tube placement confirmed upon arrival by myself based on clinical exam including lung auscultation. 2 rounds of ACLS were continued upon arrival and 2 doses of epinephrine administered. Patient had cardiac standstill on bedside ultrasound and had asystole on pulse checks. No signs of life on clinical exam. Given this as well as prolonged downtime, the decision was made to call time of at 1515. Patient's son arrived and was updated on patient's status. Critical Care Critical Care Time Critical Care Time: No
--- NOTE | 2024-01-08 15:52 | PC.NURSE ---
contacting CAROLINE at this time
--- NOTE | 2024-01-08 15:55 | EXP.DEATH.NO ---
Pronouncement Note Date and Time of Date of : 01/08/24 Time of : 15:15 PCOD Preliminary cause of : Cardiac arrest Additional Data Confirmation of : no pulse, no respirations, no heart sounds and pupils fixed and dilated Family: at bedside Additional persons at bedside: other (medical appointment clerk) Was code activated?: Yes Autopsy should be considered if:: Unknown or unanticipated medical complications Cause is not known with certainty on clinical grounds Would allay concerns of the public/family regarding Unexplained/unexpected apparently natural and not subject to a forensic medical jurisdiction DOA Within 24 hours of admission Sustained or apparently sustained injury while in the hospital Result of high risk, infectious and contagious disease Obstetric and pediatric arising from environmental or occupational hazard Unexplained/unexpected from dental, medical, or surgical diagnostic procedures and/or therapies Would disclose a known or suspected illness which also may have a bearing on survivors or recipients of transplanted organs Autopsy requested?: No Does not meet criteria liability claims examiner notified?: Yes Organ bank notified?: Yes Advance directives: No
--- NOTE | 2024-01-08 16:01 | PC.NURSE ---
spoke with ruben @ [facility]; states he will pass case along to r/o donation and would contact us back with decision.
--- NOTE | 2024-01-08 16:03 | PC.NURSE ---
[facility] case# [id number]
--- NOTE | 2024-01-08 17:17 | PC.NURSE ---
still awaiting LODA release
--- NOTE | 2024-01-08 18:01 | PC.NURSE ---
jarrett from [facility] called to release body to laboratory administrative director.
== END 2024-01-08 18:30 | disposition expired ==
PROVIDERS: Emergency Provider Emergency Medicine
DX: I46.9 Cardiac arrest, cause unspecified (principal); J96.01 Acute respiratory failure with hypoxia; R55 Syncope and collapse
CPT/HCPCS: 92950; 96374; 99291